=== PATIENT | male | born 1980 | race African-American/Black ===

== ENCOUNTER 2020-06-16 22:10 | Emergency (ER) | payer OTHER, SELFPAY ==
--- NOTE | ~2020-06-16 | CT_ITS ---
EXAMINATION: CT abdomen pelvis w con DATE: 06/16/2020 23:29 INDICATION: Left lower quadrant abdominal pain. TECHNIQUE: Computed tomography (CT) of the abdomen and pelvis was performed with 100 mL Omnipaque 350 intravenous contrast. Automated exposure control and iterative reconstruction technique were employe d. The dose-length product was 1664.48 mGy-cm. COMPARISON: CT abdomen and pelvis 01/11/2017 FINDINGS: The visualized portions of the lung bases are clear without pneumonia or pleural effusion. The heart size is normal. No pericardial effusion. The liver, gallbladder, spleen, pancreas, adrenal glands, and kidneys are normal. There are scattered diverticula in the colon. There is wall thickenin g of the sigmoid colon with surrounding fat stranding, consistent with diverticulitis. There are no d ilated loops of bowel. The appendix is normal. There are no pathologically enlarged lymph nodes. Ther e is no free intraperitoneal fluid. There is moderate lower lumbar spondylosis. IMPRESSION: 1. Acute sigmoid diverticulitis. No perforation or abscess. Reviewed, dictated and finalized at location A. ISHING EDITOR
[2020-06-16 22:12] VITALS: BP 140/82; PULSE 111; RESP 16; TEMP 36.4; O2SAT 100
--- NOTE | 2020-06-16 22:35 | ED.ABDPAIN ---
HPI - Abdominal Pain General Chief Complaint: Abdominal Pain Stated Complaint: lower abd pain Time Seen by Provider: 06/16/20 22:18 Source: patient Mode of arrival: ambulatory Limitations: no limitations History of Present Illness HPI narrative: Patient is a 40-year-old male complaining of left lower quadrant pain, 7 out of 10, sharp nonradiating started today. Patient denies any nausea vomiting diarrhea or fever. Patient denies any chest pain or shortness of breath. Related Data Allergies Allergy/AdvReac Type Severity Reaction Status Date / Time No Known Allergies Allergy Verified 06/16/20 22:18 Review of Systems Review of Systems: All systems reviewed & are unremarkable except as noted in HPI and below Constitutional: Constitutional: Denies body ache(s), Denies chills, Denies excessive sweating, Denies fatigue, Denies fever(s), Denies headache(s), Denies lethargy, Denies malaise, Denies weakness and Denies weight loss Eyes: Eyes: Denies blurry vision, Denies change in vision and Denies loss of vision ENT: Denies dizziness, Denies ear discharge, Denies headache(s), Denies lip swelling, Denies epistaxis, Denies nasal congestion, Denies neck pain, Denies throat swelling and Denies tongue swelling Cardiovascular: Cardiovascular: Denies chest pain, Denies chest pain at rest, Denies chest pain with activity, Denies diaphoresis, Denies rapid heart rate, Denies edema, Denies irregular heart rhythm, Denies lightheadedness, Denies palpitations, Denies dyspnea and Denies dyspnea on exertion Respiratory: Respiratory: Denies chest congestion, Denies cough, Denies hemoptysis, Denies dyspnea and Denies dyspnea on exertion Gastrointestinal: Gastrointestinal: Denies melena, Denies hematochezia, Denies diarrhea, Denies nausea, Denies vomiting and Denies hematemesis Musculoskeletal: Musculoskeletal: Denies abnormal gait, Denies deformity, Denies joint swelling, Denies limited range of motion, Denies neck pain and Denies numbness Neurologic: Denies Abnormal speech present, Denies abnormal gait, Denies confusion, Denies dizziness, Denies headache(s), Denies focal weakness, Denies loss of vision, Denies numbness, Denies Other visual disturbances, Denies Sensory deficit (Neuro) and Denies weakness Psychiatric: Psychiatric: Denies confusion, Denies depression, Denies auditory hallucinations, Denies homicidal ideation and Denies suicidal ideation Endocrine: Endocrine: Denies cold intolerance, Denies excessive sweating, Denies fatigue, Denies heat intolerance and Denies palpitations Hematologic/Lymphatic: Hematologic/Lymphatic: Denies easy bleeding and Denies easy bruising Allergic/Immunologic: Allergic/Immunologic: Denies lip swelling, Denies throat swelling and Denies tongue swelling PMFSH Past Medical History Medical History (Updated 06/17/20 @ 00:35 by Chapo Ojeda MD) Diverticulitis large intestine Obesity Social History Social History Gender identity (if verbalized by the patient): Male Exam Const: General: cooperative, healthy appearing, comfortable, no acute distress, well developed, alert and awake; No confusion Orientation/consciousness: oriented to person, oriented to place, oriented to time, patient oriented x3 and No confusion Limitations: no limitations HENMT: Head: normal to inspection, normocephalic and atraumatic Ears: hearing grossly normal bilaterally, TM normal on the right and TM normal on the left General nose exam: Normal external nose present, Normal nares present and No nasal discharge present Face and sinus: normal facial exam Mouth: Yes Normal oral and palatal mucosa present, Yes lip normal, Yes tongue normal and Yes oropharynx normal Throat: posterior oropharynx normal, tonsils normal and uvula midline Eyes: General: appearance normal, both eyes and all related structures Pupils: Equal, round and reactive pupils present EOM: EOMs intact bilaterall
[2020-06-16] MEDS: SODIUM CHLORIDE 0.9% IV 1,000 ML 999 ML IV CONT (22:40)
[2020-06-16 22:56] LABS: Basophils Percent Auto 0.2 % (0.2-1.2); Eosinophils Percent Auto 0.1 % (0-4.4); Hematocrit 41.6 % (42.0-52.0); Hemoglobin 13.8 g/dL (14.0-18.0); Immature Granulocyte Absolute 0.05 K/mm3 (0.00-0.031); Immature Granulocyte Percent A 0.4 % (0-0.5); Lymphocytes Absolute Auto 1.52 K/mm3 (0.9-3.2); Lymphocytes Percent Auto 11.7 % (18.3-44.2); Mean Corpuscular HGB Conc 33.2 g/dl (32-36); Mean Corpuscular Hemoglobin 27.1 pg (26-34); Mean Corpuscular Volume 81.6 fl (80-100); Mean Platelet Volume 9.9 fl (7.4-10.4); Monocytes Absolute Auto 0.9 K/mm3 (0.1-0.6); Neutrophils Absolute Auto 10.5 K/mm3 (1.3-6.7); Neutrophils Percent Auto 80.6 % (45.5-73.1); Platelet Count Result 314 k/mm3 (150-375); Red Cell Distribution Width 14.6 % (11.5-14.5)
[2020-06-16 23:07] LABS: Add Urine Microscopic? YES; Appearance Urine Clear (Clear); Bilirubin Urine Negative (Negative); Blood Urine Negative (Negative); Color Urine Yellow (Yellow); Glucose Urine UA Negative (Negative); Ketones Urine Negative (Negative); Leukocyte Esterase Ur Negative LEU/UL (Negative); Mucus Urine Rare /lpf; Nitrate Urine Negative (Negative); Protein Urine 1+ mg/dL (Negative); Specific Grav Ur 1.026 (1.001-1.035); Squamous Epithelial Cell Urine Rare /hpf (Few); Urobilinogen Urine Negative mg/dL (<2.0); WBC Urine 0-3 /hpf
[2020-06-16 23:14] LABS: Alanine Aminotransferase 27 U/L (4-50); Albumin Level 4.5 g/dL (3.5-5.1); Alkaline Phosphatase 67 U/L (38-126); Anion Gap 10 mmol/L (8-16); Aspartate Amino Transferase 24 U/L (17-59); Bilirubin,Total 0.6 mg/dL (0.2-1.3); Blood Urea Nitrogen 12 mg/dL (9-20); Calcium 9.6 mg/dL (8.4-10.2); Carbon Dioxide 27 mmol/L (22-30); Chloride 102 mmol/L (98-107); Estimated CRCL calculation 122 ml/min; Estimated Glomerular Filt Rate > 60; Glucose 120 mg/dL (75-110); Lipase 60 U/L (23-300); Potassium 3.8 mmol/L (3.4-5.0); Sodium 139 mmol/L (137-145)
[2020-06-17] MEDS: KETOROLAC 30 MG/ML VIAL (*BKC) IV PUSH (00:01)
[2020-06-17 00:36] VITALS: BP 145/75; PULSE 98; RESP 15; O2SAT 96
[2020-06-17] MEDS: metroNIDAZOLE 500 MG/ISO 100ML 500 MG/100 ML BAG 100 MG IVPB (00:53)
[2020-06-17] MEDS: HYDROcodone/acetaminophen (*CRX) 7.5-325 MG TABLET 1 TAB PO (01:51)
== END 2020-06-17 01:54 | disposition home or self-care (01) ==
PROVIDERS: Emergency Medicine; Emergency Provider Emergency Medicine; PCP Internal Medicine
DX: K57.32 Diverticulitis of large intestine without perforation or abscess without bleeding (principal); E66.9 Obesity, unspecified; Z68.36 Body mass index [BMI] 36.0-36.9, adult
CPT/HCPCS: 36415; 74177; 80053; 81001; 83690; 85025; 96361; 96365; 96367; 96375; 99284; A9270; J0696; J1885; J7030; Q9967

== ENCOUNTER 2020-08-09 20:45 | Emergency (ER) | payer OTHER, SELFPAY ==
--- NOTE | ~2020-08-09 | CT_ITS ---
EXAMINATION: CT abdomen pelvis w con INDICATION: Abdominal pain TECHNIQUE: Computed tomographic images of the abdomen and pelvis were obtained after the administrati on of 100 cc of Omnipaque 350 intravenous contrast. The dose-length product (DLP) was 1560.36 mGy-cm. Automated exposure control and iterative reconstruction technique were employed. COMPARISON: 06/16/2020 FINDINGS: Minimal dependent atelectasis is present in the lung bases. The heart size is normal. The l iver, spleen, pancreas, gallbladder, and adrenal glands are normal. The kidneys are unremarkable. No pathologically enlarged abdominal or pelvic lymph nodes are identified. There is no free intraperiton eal gas or evidence of bowel obstruction. There is wall thickening of the proximal sigmoid colon with edematous stranding of the adjacent perisigmoid fat. No perforation or abscess is identified. There are no dilated loops of bowel. The appendix is normal. There is moderate lower lumbar spondylosis. Th ere is a fat-containing umbilical hernia. IMPRESSION: 1. Acute, uncomplicated sigmoid diverticulitis. Reviewed, dictated and finalized at location A. ETING OPERATIONS CONSULTANT
[2020-08-09 20:46] VITALS: BP 135/82; PULSE 98; RESP 16; TEMP 36.6; O2SAT 100
--- NOTE | 2020-08-09 21:06 | PC.NURSE ---
patient brought back to ED room 8 with c/o abdomen pain. see initial notes. no change in patient's condition since triage completed. hx of diverticulitis last year per patient's report. denies known fever. denies N/V/D. alert. oriented. SL inserted. labs drawn. on BP and O2 monitors. call light in reach. aware that we do need a urine specimen.
[2020-08-09 21:07] LABS: Basophils Percent Auto 0.2 % (0.2-1.2); Eosinophils Percent Auto 0.3 % (0-4.4); Hematocrit 44.4 % (42.0-52.0); Hemoglobin 14.6 g/dL (14.0-18.0); Immature Granulocyte Absolute 0.03 K/mm3 (0.00-0.031); Immature Granulocyte Percent A 0.3 % (0-0.5); Lymphocytes Absolute Auto 1.54 K/mm3 (0.9-3.2); Lymphocytes Percent Auto 14.8 % (18.3-44.2); Mean Corpuscular HGB Conc 32.9 g/dl (32-36); Mean Corpuscular Hemoglobin 26.7 pg (26-34); Mean Corpuscular Volume 81.2 fl (80-100); Mean Platelet Volume 9.6 fl (7.4-10.4); Monocytes Absolute Auto 0.6 K/mm3 (0.1-0.6); Monocytes Percent Auto 5.8 % (2.6-8.5); Neutrophils Absolute Auto 8.2 K/mm3 (1.3-6.7); Neutrophils Percent Auto 78.6 % (45.5-73.1); Platelet Count Result 295 k/mm3 (150-375); Red Blood Count 5.47 M/mm3 (4.6-6.20); Red Cell Distribution Width 15.2 % (11.5-14.5); White Blood Count 10.4 K/mm3 (4.5-10.0)
[2020-08-09 21:18] LABS: Alanine Aminotransferase 27 U/L (4-50); Albumin Level 4.4 g/dL (3.5-5.1); Alkaline Phosphatase 67 U/L (38-126); Anion Gap 10 mmol/L (8-16); Aspartate Amino Transferase 25 U/L (17-59); Bilirubin,Total 0.6 mg/dL (0.2-1.3); Blood Urea Nitrogen 12 mg/dL (9-20); Calcium 9.6 mg/dL (8.4-10.2); Carbon Dioxide 28 mmol/L (22-30); Chloride 98 mmol/L (98-107); Estimated CRCL calculation 134 ml/min; Estimated Glomerular Filt Rate > 60; Glucose 113 mg/dL (75-110); Lipase 186 U/L (23-300); Potassium 4.3 mmol/L (3.4-5.0); Sodium 136 mmol/L (137-145)
[2020-08-09] MEDS: ONDANSETRON INJ 4 MG/2 ML VIAL IV PUSH (21:40)
[2020-08-09] MEDS: SODIUM CHLORIDE 0.9% IV 1,000 ML 999 ML IV CONT (21:40)
[2020-08-09] MEDS: MORPHINE SULFATE (*CRX) 4 MG/ML INJ IV PUSH (21:57)
--- NOTE | 2020-08-09 21:57 | PC.NURSE ---
patient back from CT scan. IVF started. medicated as ordered. provider in room. on BP and O2 monitors. call light in reach.
--- NOTE | 2020-08-09 22:16 | ED.GENADULT ---
HPI - General Adult General Chief complaint: Abdominal Pain Stated complaint: Abd pain Time Seen by Provider: 08/09/20 21:24 History of Present Illness HPI narrative: Patient is a 40-year-old gentleman who presents the emergency department with chief complaint of left lower quadrant abdominal pain. The patient reports that he has history of diverticulitis and states that today he started having discomfort in the left lower quadrant. Patient states this feels just like his previous episodes and states that his last one was a couple of months ago. Patient denies fever denies vomiting. 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 Related Data Allergies Allergy/AdvReac Type Severity Reaction Status Date / Time No Known Allergies Allergy Verified 06/16/20 22:18 Review of Systems Review of Systems: Narrative: A 10 system review of systems was completed on the patient and is negative except for what is stated in the HPI. Nursing and ancillary documentation was reviewed. [facility] Past Medical History Medical History (Updated 08/09/20 @ 22:19 by Dung Roland MD) Diverticulitis large intestine Obesity Social History Social History Gender identity (if verbalized by the patient): Male Exam Narrative: Exam Narrative: GENERAL: Well-appearing, well-nourished, and in no acute distress. HEAD: Normocephalic, atraumatic. EYES: PERRLA and EOMI. ENT: Nares clear, no rhinorrhea or epistaxis. Mucous membranes moist. NECK: Supple. CHEST: Clear to auscultation. No respiratory distress. HEART: Regular rate and rhythm. No murmur heard. Normal peripheral pulses. ABDOMEN: Soft, tender to palpation of the left lower quadrant, nondistended, normal active bowel sounds. EXTREMITIES: Normal range of motion. No edema. SKIN: Warm, dry, no rash. NEURO: No focal deficits. Alert and oriented x3. PSYCH: Normal mood and affect. Course Course Emergency Course: Laboratory studies not show any significant abnormalities. CT scan showed uncomplicated diverticulitis patient will be started on p.o. antibiotics and also given a short prescription for pain medication for home. Vital Signs Vital signs: Vital Signs Temperature 36.6 C 08/09/20 20:46 Pulse Rate 98 08/09/20 20:46 Respiratory Rate 16 08/09/20 20:46 Blood Pressure 135/82 08/09/20 20:46 Pulse Oximetry 100 08/09/20 20:46 Temperature 36.6 C 08/09/20 20:46 Pulse Rate 98 08/09/20 20:46 Respiratory Rate 16 08/09/20 20:46 Blood Pressure 135/82 08/09/20 20:46 Pulse Oximetry 100 08/09/20 20:46 Medical Decision Making Vital Signs Vital Signs: Vital Signs Temperature 36.6 C 08/09/20 20:46 Pulse Rate 98 08/09/20 20:46 Respiratory Rate 16 08/09/20 20:46 Blood Pressure 135/82 08/09/20 20:46 Pulse Oximetry 100 08/09/20 20:46 Temperature 36.6 C 08/09/20 20:46 Pulse Rate 98 08/09/20 20:46 Respiratory Rate 16 08/09/20 20:46 Blood Pressure 135/82 08/09/20 20:46 Pulse Oximetry 100 08/09/20 20:46 Lab Data Result diagrams: 08/09/20 21:00 08/09/20 21:00 Labs: Lab Results 08/09/20 08/09/20 Range/Units 21:00 21:00 WBC 10.4 H (4.5-10.0) K/mm3 RBC 5.47 (4.6-6.20) M/mm3 Hgb 14.6 (14.0-18.0) g/dL Hct 44.4 (42.0-52.0) % MCV 81.2 (80-100) fl MCH 26.7 (26-34) pg MCHC 32.9 (32-36) g/dl RDW 15.2 H (11.5-14.5) % Plt Count 295 (150-375) k/mm3 MPV 9.6 (7.4-10.4) fl Immature Gran % (Auto) 0.3 (0-0.5) % Neut % (Auto) 78.6 H (45.5-73.1) % Lymph % (Auto) 14.8 L (18.3-44.2) % [place]oup % (Auto) 5.8 (2.6-8.5) % Eos % (Auto) 0.3 (0-4.4) % Baso % (Auto) 0.2 (0.2-1.2) % Lymph # (Auto) 1.54 (0.9-3.2) K/mm3 Troup # (Auto) 0.6 (0.1-0.6) K/mm3 Eos # (Auto) 0.0 (0-0.3) K/mm3 Baso # (Auto) 0.0
[2020-08-09] MEDS: CIPROFLOXACIN 500 MG TAB PO (22:27)
[2020-08-09] MEDS: metroNIDAZOLE 250 MG TABLET 500 MG PO (22:27)
--- NOTE | 2020-08-09 23:09 | PC.NURSE ---
Er physician states he does not need a urine sample from patient
[2020-08-09 23:42] VITALS: BP 135/85; PULSE 102; RESP 17; O2SAT 95
== END 2020-08-09 23:44 | disposition home or self-care (01) ==
PROVIDERS: Emergency Medicine; Emergency Provider Emergency Medicine; PCP Internal Medicine
DX: K57.32 Diverticulitis of large intestine without perforation or abscess without bleeding (principal); E66.9 Obesity, unspecified; Z68.36 Body mass index [BMI] 36.0-36.9, adult
CPT/HCPCS: 36415; 74177; 80053; 83690; 85025; 96361; 96374; 96375; 99284; A9270; J2270; J2405; J7030; Q9967

== ENCOUNTER → 2021-01-13 02:16 | Outpatient (CLI) | payer OTHER, SELFPAY ==
[2021-01-13 18:15] LABS: SARS-CoV-2 RNA PCR Negative
== END ==
PROVIDERS: PCP Internal Medicine; Visit Provider Internal Medicine Gastroenterology
DX: Z01.812 Encounter for preprocedural laboratory examination (principal); Z20.822 Contact with and (suspected) exposure to COVID-19
CPT/HCPCS: C9803; U0003; U0005

== ENCOUNTER 2021-01-16 00:45 | Day surgery (SDC) | payer OTHER, SELFPAY ==
[2021-01-06 14:22] VITALS: BMI 38.9
[2021-01-16 07:47] VITALS: BP 161/90; PULSE 71; RESP 18; TEMP 36.4; O2SAT 99
--- NOTE | 2021-01-16 07:53 | WPDANESEPPF ---
Anes - Initial Pre Proc Eval Procedure: Operation Date: 01/16/21 08:45 Proposed Procedures p Colonoscopy - Francisco Javier Snell MD Date/Time: 01/16/21 07:53 Surgeon: Francisco Javier Snell MD Pre Op Diagnosis: hx of colon polyps, Diverticulitis Patient Data Age: 40 Gender: M Height: 1.85 m Weight: 136.7 kg Last Vital Signs Temp 36.4 C L 01/16/21 07:47 Pulse 71 01/16/21 07:47 Resp 18 01/16/21 07:47 BP 161/90 H 01/16/21 07:47 Pulse Ox 99 01/16/21 07:47 Allergies Allergy/AdvReac Type Severity Reaction Status Date / Time No Known Allergies Allergy Verified 01/16/21 07:45 Home Medications Medication Instructions Recorded Confirmed Type sod picosulf 10 mg-magnes 3.5 160 ml PO BID #160 ml 12/19/20 01/16/21 Rx gram-citric 12 gram/160 mL oral solution Patient hx anesthesia problems: none Family hx anesthesia problems: none [facility] Past Medical History Medical History Diverticulitis large intestine Obesity Social History Social History (Updated 12/12/20 @ 10:15 by Beverly Guerrero CMA) Smoking status: Never smoker Alcohol intake: current Drinks per week: 2 Substance use: never Living arrangements: with family Gender identity (if verbalized by the patient): Male Spiritual care concerns: No Anes - Eval Final PreProcedure Day of Procedure 01/16/21 07:53 Patient weight: obese Heart: regular rate and rhythm Lungs: clear to auscultation and normal air movement Airway: Mallampati scale class II Neurological: alert and oriented Last oral intake: >/= 8 hours ASA classification: III Emergent: no Anesthetic plan: proceed Anesthesia type and monitoring: general GIVS Informed Consent: The patient's anesthetic plan and its attendant risks and benefits were discussed with the patient/family/POA. Questions were solicited and answers provided to the satisfaction of the patient/family/POA.
[2021-01-16] MEDS: LACTATED RINGERS 1,000 ML 150 ML IV CONT (07:55)
--- NOTE | 2021-01-16 08:26 | WPDGICN ---
Assessment and Plan Assessment and plan (1) Diverticulitis large intestine: Qualifiers: Diverticulitis bleeding: without bleeding Diverticulitis complication: without perforation or abscess Qualified Code(s): K57.32 - Diverticulitis of large intestine without perforation or abscess without bleeding Code(s): K57.32 - Diverticulitis of large intestine without perforation or abscess without bleeding Status: Acute Assessment and Plan: Patient with recurrent episodes of diverticulitis. Currently asymptomatic. He has had 4-6 episodes over the last year. Plan is for high-fiber diet colonoscopy will be performed to suggest surgical evaluation for possible sigmoid resection. (2) History of colon polyps: Code(s): Z86.010 - Personal history of colonic polyps Status: Acute Assessment and Plan: Patient has had colon polyps. Last colonoscopy in 2017 revealed several colon polyps. Plan is for surveillance colonoscopy at this time this will be reviewed ultimately follow-up every 5 years is anticipated. GI Consult Note Consult date/time: 01/16/21 08:26 HPI: Dm Santiago is a 40 year old male Seen in evaluation at the request of Dr. Jensen. patient presents for colonoscopy. Patient has a history of recurrent diverticulitis. He has had at least 4-6 episodes of diverticulitis during the last year. He states it has improved somewhat with antibiotics but has promptly recurred. Last episode was 2 months ago. Patient denies any bleeding. He denies any weight loss. Last colonoscopy in 2017 revealed colon polyps. Patient's family history is noncontributory. Patient reports no specific precipitating factors. Review of Systems Review of Systems: All systems reviewed & are unremarkable except as noted in HPI and below PMFSH Past Medical History Medical History (Updated 01/16/21 @ 08:28 by Francisco Javier Snell MD) Diverticulitis large intestine Obesity Social History Social History (Updated 12/12/20 @ 10:15 by Beverly Guerrero CMA) Smoking status: Never smoker Alcohol intake: current Drinks per week: 2 Substance use: never Living arrangements: with family Gender identity (if verbalized by the patient): Male Spiritual care concerns: No Meds Home Medications and Allergies Home Medications Medication Instructions Recorded Confirmed Type sod picosulf 10 mg-magnes 3.5 160 ml PO BID #160 ml 12/19/20 01/16/21 Rx gram-citric 12 gram/160 mL oral solution Allergies Allergy/AdvReac Type Severity Reaction Status Date / Time No Known Allergies Allergy Verified 01/16/21 07:45 Vital Signs Vital Signs - 24 hr 01/16/21 07:47 Temperature 97.5 F L Pulse Rate 71 Respiratory Rate 18 Blood Pressure 161/90 H Pulse Oximetry 99 Exam Narrative: Exam Narrative: Physical exam reveals patient be alert. Vital signs stable. HEENT exam is unremarkable. Patient is anicteric. Lungs are clear to auscultation and percussion. Heart is without murmur or extra sounds. Abdominal exam bowel sounds are present soft nontender with no organomegaly. Digital external rectal exam is normal.
[2021-01-16 08:54] VITALS: BP 122/78; PULSE 80; RESP 22; O2SAT 98
[2021-01-16 09:04] VITALS: BP 138/96; PULSE 76; RESP 22; O2SAT 98
[2021-01-16 09:14] VITALS: BP 140/98; PULSE 64; RESP 20; O2SAT 98
== END 2021-01-16 09:30 | disposition home or self-care (01) ==
PROVIDERS: PCP Internal Medicine; Visit Provider Internal Medicine Gastroenterology
PROC: 0DJD8ZZ Inspection of Lower Intestinal Tract, Via Natural or Artificial Opening Endoscopic (ICD-10-PCS; CPT 45378; principal; 2021-01-16 08:45)
DX: Z12.11 Encounter for screening for malignant neoplasm of colon (principal); Z86.010 Personal history of colon polyps; E66.9 Obesity, unspecified; Z68.39 Body mass index [BMI] 39.0-39.9, adult; K57.32 Diverticulitis of large intestine without perforation or abscess without bleeding
CPT/HCPCS: 45378; C9803; J2704; J7120; U0003; U0005

== ENCOUNTER 2021-03-03 19:47 | Emergency (ER) | payer OTHER, SELFPAY ==
--- NOTE | ~2021-03-03 | CT_ITS ---
EXAMINATION: CTA brain carotid EXAM DATE: 03/04/2021 02:59 INDICATION: Dizziness, unsteady TECHNIQUE: Noncontrast head CT. Spiral CTA of the carotid arteries was performed with intravenous i njection 100 cc of Omnipaque 350. Axial, coronal, sagittal reformatted images reviewed. Additional r eformatted images created on dedicated 3-D workstation. NASCET comparable standard used to assess th e degree of arterial stenosis. Spiral CT angiogram cerebral arteries performed with the same intrave nous injection of contrast. Source images of the brain CTA transferred to dedicated workstation for 3 -D rotational image creation. Coronal, sagittal maximum intensity pixel images also reviewed. The d ose-length product (DLP) for this examination was 1800.43 mGy-cm. The exposure was tailored accordi ng to patient size, and iterative reconstruction (ASIR) was used as additional dose reduction techniq ue. There is no prior study for comparison. FINDINGS: No focal carotid plaque or stenosis bilaterally (0% stenosis). There is no carotid or vert ebral basilar arterial dissection or fibromuscular dysplasia. There are no cerebral artery aneurysms. There is symmetric cerebral artery arborization. The sagittal, transverse and sigmoid sinuses enhanc e normally, no venous sinus thrombosis. Internal cerebral veins also enhance normally. There is no acute intraparenchymal hemorrhage. No evidence of intraparenchymal brain mass lesion. N o evidence of acute infarction. There is no mass effect or midline shift. There is no obstructive hyd rocephalus suspected. There are no extra-axial collections. Incidental Findings: Mild cervical spondylosis. IMPRESSION: Normal CTA brain carotid examination. Reviewed, dictated and finalized at location G.
--- NOTE | 2021-03-03 19:50 | ECG_ITS ---
Measurements Intervals [place] Rate: 84 P: 57 SC: 158 QRS: 30 QRSD: 85 T: 49 QT: 332 QTc: 393 Interpretive Statements SINUS RHYTHM NORMAL ECG Electronically Signed On 03-03-2021 20:54:01 CDT by Bruno Mancera D.O.
[2021-03-03 19:51] VITALS: BP 128/82; PULSE 89; RESP 18; TEMP 36.4; O2SAT 99
[2021-03-03 20:07] LABS: Basophils Percent Auto 0.2 % (0.2-1.2); Eosinophils Absolute Auto 0.1 K/mm3 (0-0.3); Hematocrit 43.7 % (42.0-52.0); Hemoglobin 14.1 g/dL (14.0-18.0); Immature Granulocyte Absolute 0.02 K/mm3 (0.00-0.031); Immature Granulocyte Percent A 0.2 % (0-0.5); Lymphocytes Percent Auto 24.8 % (18.3-44.2); Mean Corpuscular HGB Conc 32.3 g/dl (32-36); Mean Corpuscular Hemoglobin 26.3 pg (26-34); Mean Corpuscular Volume 81.5 fl (80-100); Mean Platelet Volume 9.7 fl (7.4-10.4); Monocytes Absolute Auto 0.6 K/mm3 (0.1-0.6); Monocytes Percent Auto 6.5 % (2.6-8.5); Neutrophils Percent Auto 67.3 % (45.5-73.1); Platelet Count Result 325 k/mm3 (150-375); Red Blood Count 5.36 M/mm3 (4.6-6.20); Red Cell Distribution Width 15.6 % (11.5-14.5); White Blood Count 8.9 K/mm3 (4.5-10.0)
[2021-03-03 20:20] LABS: Anion Gap 11 mmol/L (8-16); Blood Urea Nitrogen 14 mg/dL (9-20); Carbon Dioxide 24 mmol/L (22-30); Chloride 104 mmol/L (98-107); Estimated CRCL calculation 122 ml/min; Estimated Glomerular Filt Rate > 60; Glucose 120 mg/dL (65-110); Potassium 3.7 mmol/L (3.4-5.0); Sodium 139 mmol/L (137-145)
[2021-03-04] VITALS (17 sets, daily range): BP systolic 120–143; BP diastolic 92–116; PULSE 60–92; RESP 9–20; TEMP 36.7; O2SAT 96–99
--- NOTE | 2021-03-04 03:07 | ED.DIZZY ---
HPI - Dizziness General Chief Complaint: Dizziness Stated Complaint: dizziness x 3 days Time Seen by Provider: 03/04/21 01:45 Source: patient and RN notes reviewed Mode of arrival: ambulatory Limitations: no limitations History of Present Illness HPI Narrative: This is a 40 year old male who presents for evaluation of intermittent dizziness. He states he developed dizziness on Saturday. He states his dizziness is intermittent. He notices his dizziness when he stands up. He reports he feels off balance when he stands. He states day his dizziness is occurring more frequently and he felt it when he sat down. He denies associated nausea, vomiting, headache, blurred vision, double vision . He denies spinning sensation. Related Data Allergies Allergy/AdvReac Type Severity Reaction Status Date / Time No Known Allergies Allergy Verified 03/03/21 19:53 Review of Systems Review of Systems: All systems reviewed & are unremarkable except as noted in HPI and below Constitutional: Constitutional: Denies chills and Denies fever(s) Eyes: Eyes: Denies change in vision and Denies photophobia ENT: Denies vertigo, Reports dizziness and Denies nasal congestion Cardiovascular: Cardiovascular: Denies chest pain Respiratory: Respiratory: Denies dyspnea Gastrointestinal: Gastrointestinal: Denies abdominal pain, Denies diarrhea, Denies nausea and Denies vomiting Neurologic: Reports dizziness, Denies headache(s), Denies focal weakness, Denies numbness and Denies weakness PMFSH Past Medical History Medical History Diverticulitis large intestine Obesity Surgical History Surgical History History of colonoscopy Family History Family History Father Heart disease Mother Hypertension Social History Social History (Updated 01/30/21 @ 13:34 by Nickie Medina CMA) Smoking status: Never smoker Alcohol intake: current Drinks per week: 2 Substance use: never Additional occupation/education comments: [employer] Gender identity (if verbalized by the patient): Male Spiritual care concerns: No Exam Const: General: no acute distress and alert Orientation/consciousness: patient oriented x3 Eyes: Conjunctivae: conjunctivae normal Pupils: Equal, round and reactive pupils present EOM: EOMs intact bilaterally Resp: Effort & Inspection: normal respiratory effort and no retractions Auscultation: clear to auscultation bilaterally Cardio: Rate: regular rate Rhythm: regular rhythm Heart sounds: no murmurs GI: GI Palp: Yes Soft to palpation, No Tenderness to palpation present (GI) and No Guarding due to palpation present (GI) Auscultation: normal bowel sounds Neuro: General: patient oriented x3, moves all extremities, no meningeal signs, no focal motor deficits and CN's II-XI intact bilaterally Cranial nerves: Yes Nystagmus not present Speech: normal speech Gait exam (Neuro): Normal gait present Psych: Mental Status: mental status grossly normal Affect: normal affect Course Reevaluation(s) Reevaluation #1: PAtient was able to stand up and walk around without dizziness. he has steady gait. Date: 03/04/21 Time: 04:10 Vital Signs Vital signs: Vital Signs Temperature 97.5 F L 03/03/21 19:51 Pulse Rate 89 03/03/21 19:51 Respiratory Rate 18 03/03/21 19:51 Blood Pressure 128/82 03/03/21 19:51 Pulse Oximetry 99 03/03/21 19:51 Temperature 98.1 F 03/04/21 05:08 Pulse Rate 80 03/04/21 05:08 Respiratory Rate 18 03/04/21 05:08 Blood Pressure 139/100 H 03/04/21 05:08 Pulse Oximetry 99 03/04/21 05:08 MDM - Dizziness Lab Data Attestation: I reviewed the patient's lab results. Result diagrams: 03/03/21 20:00 03/03/21 20:00 Labs: Lab Results 03/03/21 03/03/21 Range/U
== END 2021-03-04 05:11 | disposition home or self-care (01) ==
PROVIDERS: Emergency Medicine; Emergency Provider General Practice; PCP Internal Medicine
DX: R42 Dizziness and giddiness (principal); E66.9 Obesity, unspecified; Z68.38 Body mass index [BMI] 38.0-38.9, adult
CPT/HCPCS: 36415; 70496; 70498; 80048; 85025; 93005; 99284; Q9967

== ENCOUNTER 2021-03-07 03:45 | Emergency (ER) | payer OTHER, SELFPAY ==
--- NOTE | ~2021-03-07 | CT_ITS ---
EXAMINATION: CT abdomen pelvis w con DATE: 03/07/2021 05:10 INDICATION: Diverticulitis. Abdomen pain. TECHNIQUE: Computed tomography (CT) of the abdomen and pelvis was performed with 100 cc Omnipaque 350 intravenous contrast. The dose-length product was 1462.40 mGy-cm. Automated exposure control and ite rative reconstruction technique were employed. COMPARISON: CT dated 08/09/2020. FINDINGS: Lung bases are unremarkable. Heart size normal. No significant pleural or pericardial effus ion. No significant vascular abnormality. No lymphadenopathy. Fatty infiltration of the liver. Gallbladder is present. The spleen, pancreas, adrenal glands and kid neys are unremarkable. Normal appendix. Nonobstructive bowel gas pattern. There is abnormal thickenin g of the distal descending and proximal sigmoid colon with moderate surrounding phlegmonous change, c onsistent with diverticulitis. Cannot exclude underlying mass. No evidence for abscess. No acute osse ous abnormality. IMPRESSION: 1. Acute diverticulitis of the distal descending and proximal sigmoid colon with moderate phlegmonous change. Cannot exclude underlying mass. Recommend follow-up GI consultation with evaluation when the patient's condition permits. Reviewed, dictated and finalized at location A. IMPRESSION: 1. Acute diverticulitis of the distal descending and proximal sigmoid colon wit h moderate phlegmonous change. Cannot exclude underlying mass. Recommend follow -up GI consultation with evaluation when the patient's condition permits.
[2021-03-07 03:53] VITALS: BP 128/92; PULSE 101; RESP 20; TEMP 36.8; O2SAT 99
--- NOTE | 2021-03-07 03:53 | ED.ABDPAIN ---
HPI - Abdominal Pain General Chief Complaint: Abdominal Pain Stated Complaint: Diverticulitis Time Seen by Provider: 03/07/21 03:53 Source: patient Mode of arrival: ambulatory Limitations: no limitations History of Present Illness HPI narrative: Patient is a 40-year-old male with a history of diverticulitis who presents for evaluation of recurrent left lower quadrant abdominal pain. Patient reports he has had worsening pain over the past 3 nights which is sore and sharp in nature, worsened with movement. He feels it mostly in the left side, denies any left-sided back pain. No right-sided abdominal pain. He denies fever, chills, nausea or vomiting. He does report decreased oral intake secondary to the pain. He denies blood present in his stool, dark or tarry stool, or mucus present in the stool. No diarrhea or constipation. He denies any urinary symptoms. Patient follows with Dr. Landa, is scheduled to have surgery within the next 2 weeks. Related Data Allergies Allergy/AdvReac Type Severity Reaction Status Date / Time No Known Allergies Allergy Verified 03/07/21 05:03 Review of Systems Review of Systems: Narrative: CONSTITUTIONAL: Denies fever, chills, or sweats. EYES: Denies visual changes, redness, or discharge. ENT: Denies rhinorrhea, congestion, sore throat, or otalgia. CARDIOVASCULAR: Denies chest pain, palpitations, or edema. RESPIRATORY: Denies cough or dyspnea. GASTROINTESTINAL: Reports abdominal pain and decreased oral intake, denies vomiting or diarrhea GENITOURINARY: Denies dysuria or hematuria. SKIN: Denies rash or itching. MUSCULOSKELETAL: Denies back pain, joint pain, or myalgia. NEUROLOGIC: Denies headache, numbness, or weakness. [facility] Past Medical History Medical History Diverticulitis large intestine Obesity Surgical History Surgical History History of colonoscopy Family History Family History Father Heart disease Mother Hypertension Social History Social History Smoking status: Never smoker Alcohol intake: current Drinks per week: 2 Substance use: never Additional occupation/education comments: [employer] Gender identity (if verbalized by the patient): Male Spiritual care concerns: No Exam Narrative: Exam Narrative: GENERAL: Awake, alert, conversant HEAD: Normocephalic, atraumatic. EYES: PERRLA and EOMI. ENT: Nares clear, no rhinorrhea or epistaxis. Mucous membranes moist. NECK: Supple. CHEST: No respiratory distress, breathing even and non labored HEART: Regular rate, sinus rhythm ABDOMEN:Non distended, tender in the left lower quadrant without rebound, no rigidity or guarding EXTREMITIES: Normal range of motion. No edema. SKIN: Warm, dry, no rash. NEURO:No focal deficits. Alert and oriented x3 Course Vital Signs Vital signs: Vital Signs Temperature 36.8 C 03/07/21 03:53 Pulse Rate 101 H 03/07/21 03:53 Respiratory Rate 20 03/07/21 03:53 Blood Pressure 128/92 H 03/07/21 03:53 Pulse Oximetry 99 03/07/21 03:53 Temperature 36.8 C 03/07/21 03:53 Pulse Rate 101 H 03/07/21 03:53 Respiratory Rate 20 03/07/21 03:53 Blood Pressure 128/92 H 03/07/21 03:53 Pulse Oximetry 99 03/07/21 03:53 MDM - Abdominal Pain MDM Narrative Medical decision making narrative: Patient presenting for evaluation of left-sided abdominal pain in the setting of known diverticulitis. At the time of assessment, ABCs are intact and vital signs are stable. Notable for mild leukocytosis. Patient is afebrile, no hypotension. No sign of severe sepsis or septic shock. There is no sign of mirtha perforation on CT imaging but there is a severe amount of inflammation. No definite abscess. Spoke with on-call surgeon Dr. Reyes regarding the patient, altagracia
[2021-03-07 04:39] LABS: Basophils Percent Auto 0.1 % (0.2-1.2); Eosinophils Percent Auto 0.3 % (0-4.4); Immature Granulocyte Absolute 0.04 K/mm3 (0.00-0.031); Immature Granulocyte Percent A 0.4 % (0-0.5); Lymphocytes Absolute Auto 1.37 K/mm3 (0.9-3.2); Lymphocytes Percent Auto 12.5 % (18.3-44.2); Mean Corpuscular HGB Conc 33.3 g/dl (32-36); Mean Corpuscular Hemoglobin 26.5 pg (26-34); Mean Corpuscular Volume 79.4 fl (80-100); Mean Platelet Volume 9.7 fl (7.4-10.4); Monocytes Absolute Auto 0.9 K/mm3 (0.1-0.6); Monocytes Percent Auto 8.1 % (2.6-8.5); Neutrophils Absolute Auto 8.6 K/mm3 (1.3-6.7); Neutrophils Percent Auto 78.6 % (45.5-73.1); Platelet Count Result 322 k/mm3 (150-375); Red Blood Count 5.29 M/mm3 (4.6-6.20); Red Cell Distribution Width 15.2 % (11.5-14.5); White Blood Count 10.9 K/mm3 (4.5-10.0)
[2021-03-07] MEDS: SODIUM CHLORIDE 0.9% IV 1,000 ML 999 ML IV CONT (04:41)
[2021-03-07] MEDS: MORPHINE SULFATE (*CRX) 4 MG/ML INJ IV PUSH (04:43)
[2021-03-07] MEDS: ONDANSETRON INJ 4 MG/2 ML VIAL IV PUSH (04:45)
[2021-03-07 04:51] LABS: Alanine Aminotransferase 28 U/L (4-50); Albumin Level 4.5 g/dL (3.5-5.1); Alkaline Phosphatase 75 U/L (38-126); Anion Gap 12 mmol/L (8-16); Aspartate Amino Transferase 28 U/L (17-59); Bilirubin,Total 0.5 mg/dL (0.2-1.3); Blood Urea Nitrogen 12 mg/dL (9-20); Calcium 9.8 mg/dL (8.4-10.2); Carbon Dioxide 25 mmol/L (22-30); Chloride 100 mmol/L (98-107); Estimated CRCL calculation 122 ml/min; Estimated Glomerular Filt Rate > 60; Glucose 117 mg/dL (65-110); Lipase 260 U/L (23-300); Potassium 3.9 mmol/L (3.4-5.0); Sodium 137 mmol/L (137-145)
[2021-03-07 07:15] VITALS: BP 131/81; PULSE 82; RESP 18; O2SAT 97
== END 2021-03-07 07:16 | disposition home or self-care (01) ==
PROVIDERS: Emergency Provider Emergency Medicine; PCP Internal Medicine
DX: K57.32 Diverticulitis of large intestine without perforation or abscess without bleeding (principal); E66.9 Obesity, unspecified; Z68.39 Body mass index [BMI] 39.0-39.9, adult
CPT/HCPCS: 36415; 74177; 80053; 83690; 85025; 96361; 96374; 96375; 99284; J2270; J2405; J7030; Q9967

== ENCOUNTER 2021-03-07 13:36 | Outpatient (CLI) | payer OTHER, SELFPAY ==
--- NOTE | 2021-03-07 10:00 | ECG_ITS ---
Measurements Intervals Harvey Rate: 81 P: 57 ME: 151 QRS: 33 QRSD: 90 T: 32 QT: 335 QTc: 390 Interpretive Statements SINUS RHYTHM POSSIBLE LEFT ATRIAL ENLARGEMENT DELAYED PRECORDIAL R/S TRANSITION BORDERLINE ECG Electronically Signed On 03-07-2021 11:05:47 CDT by Bruno Mancera D.O.
[2021-03-07 11:13] LABS: Hematocrit 42.3 % (42.0-52.0); Hemoglobin 13.6 g/dL (14.0-18.0)
== END 2021-03-07 13:37 | disposition home or self-care (01) ==
LOC: ANHSURGERY 04-07 13:36
PROVIDERS: Anesthesiology; PCP Internal Medicine; Visit Provider Surgery
DX: K57.92 Diverticulitis of intestine, part unspecified, without perforation or abscess without bleeding (principal); Z01.818 Encounter for other preprocedural examination; R94.31 Abnormal electrocardiogram [ECG] [EKG]
CPT/HCPCS: 36415; 85014; 85018; 93005

== ENCOUNTER → 2021-03-21 01:53 | Outpatient (CLI) | payer OTHER, SELFPAY ==
[2021-03-21 17:39] LABS: SARS-CoV-2 RNA PCR Negative
== END ==
PROVIDERS: PCP Internal Medicine; Visit Provider Surgery
DX: Z01.812 Encounter for preprocedural laboratory examination (principal); Z20.822 Contact with and (suspected) exposure to COVID-19
CPT/HCPCS: C9803; U0003; U0005

== ENCOUNTER 2021-03-23 17:42 | Inpatient (IN) | payer OTHER, SELFPAY ==
[2021-03-07 10:20] VITALS: BP 146/67; PULSE 94; RESP 18; TEMP 36.8; O2SAT 97; BMI 39.2
[2021-03-23] VITALS (13 sets, daily range): BP systolic 123–156; BP diastolic 82–93; PULSE 65–99; RESP 14–28; TEMP 36–36.5; O2SAT 90–100
--- NOTE | 2021-03-23 10:00 | WPDHPUPDATE1 ---
History and Physical Update Update Date/Time: 03/23/21 10:00 History and Physical has been reviewed, including an updated exam of the patient. There are NO changes in the patient's condition. Risks, benefits, and alternatives have been discussed and questions answered. Patient agrees to proceed with procedure.
--- NOTE | 2021-03-23 10:00 | PM.IMHP ---
H&P: HPI History of Present Illness Date/Time: 03/23/21 10:00 Chief Complaint: Diverticulitis Narrative: Patient is a 40-year-old man who has had multiple episodes of diverticulitis. He has had colonoscopy as well showing diverticular disease but no evidence of malignancy. His more recent episodes have been difficult to treat. He was seen in the office at the request of his radiology technician, Dr. Francisco Javier Snell, and has been recommended to proceed with sigmoidectomy. Patient had another episode of acute diverticulitis on March 07, 16 days ago. He came to the emergency room and CT scan confirmed the diagnosis. He was treated with analgesics and oral antibiotics. The diverticulitis resolved and he has been pain-free for several days. After thorough discussion, he has been prepared and is taken now to surgery for hand access laparoscopic sigmoidectomy. Review of Systems Review of Systems: All systems reviewed & are unremarkable except as noted in HPI and below Constitutional: Constitutional: Denies headache(s) Cardiovascular: Cardiovascular: Denies chest pain and Denies dyspnea Respiratory: Respiratory: Denies cough and Denies dyspnea Gastrointestinal: Gastrointestinal: Reports as per HPI Neurologic: Denies confusion and Denies headache(s) PMFSH Past Medical History Medical History Diverticulitis large intestine Obesity Surgical History Surgical History History of colonoscopy Family History Family History Father Heart disease Mother Hypertension Social History Social History Smoking status: Never smoker Second hand tobacco smoke exposure: No Alcohol intake: current Drinks per week: 2 Substance use: never Living arrangements: with family Additional living arrangements comments: Additional occupation/education comments: [employer] Gender identity (if verbalized by the patient): Male Spiritual care concerns: No Meds Home Medications and Allergies Home Medications Medication Instructions Recorded Confirmed Type No Home Medications 03/23/21 03/23/21 History Allergies Allergy/AdvReac Type Severity Reaction Status Date / Time No Known Allergies Allergy Verified 03/09/21 13:27 Exam Const: General: cooperative, comfortable, no acute distress, alert and awake; No confusion Orientation/consciousness: No confusion HENMT: Head: normocephalic, atraumatic, no contusions and no scalp lesions Ears: external ears normal General nose exam: Normal external nose present Face and sinus: face symmetric and dry mucous membranes Mouth: Yes Normal oral and palatal mucosa present and Yes tongue normal Throat: posterior oropharynx normal Eyes: Conjunctivae: conjunctivae normal Sclera: sclerae normal Pupils: Equal, round and reactive pupils present EOM: EOMs intact bilaterally Neck: Neck: normal visual inspection, no lymphadenopathy, trachea midline, supple, nontender and no JVD Thyroid: abnormal thyroid Resp: Effort & Inspection: normal respiratory effort Auscultation: clear to auscultation bilaterally Cardio: Rate: regular rate Rhythm: regular rhythm GI: Inspection: normal to inspection and obesity GI Palp: Yes Soft to palpation, No Tenderness to palpation present (GI), No Hepatomegaly present and No Splenomegaly present Auscultation: normal bowel sounds : Penis: Yes normal penis Scrotum: scrotum normal Testes: Testes normal, no masses and no testicular tenderness Skin: General skin exam: normal color, turgor normal and no erythema Lesions: no lesions Rashes: no rashes Trauma: no lacerations or abrasions Neuro: General: No confusion Cranial nerves: Yes Equal, round and reactive pupils present Motor exam (neuro): Motor abnormalities not
[2021-03-23] MEDS: ACETAMINOPHEN 500 MG TABLET 1000 MG PO (10:34)
[2021-03-23] MEDS: LACTATED RINGERS 1,000 ML 30 ML IV CONT ×2 (10:45→16:20)
[2021-03-23] MEDS: KETOROLAC 15 MG/ML VIAL (*BKC) IV PUSH (10:59)
--- NOTE | 2021-03-23 11:19 | WPDANESEPPF ---
Anes - Initial Pre Proc Eval Procedure: Operation Date: 03/23/21 12:30 Proposed Procedures p Hand Assisted Laparoscopic Sigmoidectomy - Vinayak Landa MD Date/Time: 03/23/21 11:19 Surgeon: Vinayak Landa MD Pre Op Diagnosis: diverticulitis Patient Data Age: 40 Gender: M Height: 1.85 m Weight: 134.7 kg Last Vital Signs Temp 36.8 C 03/07/21 10:20 Pulse 94 03/07/21 10:20 Resp 18 03/07/21 10:20 BP 146/67 H 03/07/21 10:20 Pulse Ox 97 03/07/21 10:20 Allergies Allergy/AdvReac Type Severity Reaction Status Date / Time No Known Allergies Allergy Verified 03/09/21 13:27 Home Medications Medication Instructions Recorded Confirmed Type No Home Medications 03/23/21 03/23/21 History Patient hx anesthesia problems: none Family hx anesthesia problems: none PMFSH Past Medical History Medical History Diverticulitis large intestine Obesity Surgical History Surgical History History of colonoscopy Family History Family History Father Heart disease Mother Hypertension Social History Social History Smoking status: Never smoker Second hand tobacco smoke exposure: No Alcohol intake: current Drinks per week: 2 Substance use: never Living arrangements: with family Additional living arrangements comments: Additional occupation/education comments: [employer] Gender identity (if verbalized by the patient): Male Spiritual care concerns: No Anes - Eval Final PreProcedure Day of Procedure 03/23/21 11:19 Patient weight: morbidly obese Heart: regular rate and rhythm Lungs: clear to auscultation Airway: Mallampati scale class II Neurological: alert and oriented Last oral intake: >/= 8 hours ASA classification: III Emergent: no Anesthetic plan: proceed Anesthesia type and monitoring: general ETT and standard monitoring Informed Consent: The patient's anesthetic plan and its attendant risks and benefits were discussed with the patient/family/POA. Questions were solicited and answers provided to the satisfaction of the patient/family/POA.
[2021-03-23] MEDS: ALVIMOPAN 12 MG CAPSULE PO (11:59)
[2021-03-23] MEDS: ceFAZolin 3 GM/D5W 100 ML 100 ML IVPB (12:04)
[2021-03-23] MEDS: metroNIDAZOLE 500 MG/ISO 100ML 500 MG/100 ML BAG 100 MG IVPB (12:30)
[2021-03-23] MEDS: BUPIVACAINE/EPINEPHRINE 0.5% 10 ML VIAL 50 ML INFILTRATE (13:09)
[2021-03-23] MEDS: ceFAZolin SODIUM 1 GM VIAL 3 GM IV PUSH (16:00)
--- NOTE | 2021-03-23 16:55 | SUR.PHASEI ---
Simple mask removed at 1654.
--- NOTE | 2021-03-23 17:00 | W.PM.PROC2 ---
Procedure Note - Detailed Date of Procedure 03/23/21 Pre-op Diagnosis diverticulitis Post-op Diagnosis other (Descending colon diverticulitis) Procedure Performed Hand access laparoscopic left colectomy, laparoscopic mobilization of splenic flexure, hand-sewn anastomosis Surgeon Vinayak Landa MD Table[employer] Administrator Asuncion BARRON Anesthesia general and local (0.5% Marcaine with epinephrine) Indications Patient is had multiple episodes of diverticulitis particularly within the last [address] scans note that the diverticulitis is in the distal descending colon which is somewhat unusual as typically the diverticulitis is in the sigmoid. Patient was just in the emergency room 2 weeks ago with another episode of diverticulitis. Again this appeared to be in the distal descending colon. He is taken to surgery now for hand access laparoscopic colectomy for recurrent episodes of diverticulitis. Findings Well there were diverticuli in the sigmoid there was no evidence of inflammation thickening or previous infection. In the distal descending colon, however, there was evidence of both acute and chronic inflammation with thickening of the wall and induration of the mesentery and epiploica. This appeared to be the site of the recurrent diverticulitis rather than the sigmoid. Splenic flexure mobilization was necessary to achieve enough length of the descending colon to resect and provide end-to-end hand-sewn anastomosis to the upper sigmoid colon. Description of Procedure Patient was taken to surgery and induced into general anesthesia. He was placed in Rashi stirrups in lithotomy. Rectal irrigation rectal tube were placed. Chiang catheter was placed. The abdomen is prepped and draped. The hand access port was marked on the skin in the midline below the umbilicus. Local was infiltrated in the area of the anticipated incision. Incision was then made dissection was carried down through the subcutaneous to the anterior abdominal wall fascia. Additional local was infiltrated in the fascia. Fascia was then opened in the midline and dissection was carried down between the 2 rectus muscles. The peritoneum was exposed and opened. We extended this opening the length of the wound. I then placed the Xu and GelPort. With the hand in the abdomen, the 10 11 left mid abdominal trocar was placed. Under direct visualization, the 10 11 midline trocar was placed. Finally a 12 mm right mid abdominal trocar was placed. The descending colon was exposed. It was adherent to the left abdominal sidewall. The LigaSure was used for virtually all dissection. The adhesions were taken down with the LigaSure and gradually the distal descending and upper sigmoid was mobilized. The bulk of the sigmoid colon was not adherent and in fact looked completely normal. As noted above, there were a lot of inflammatory changes in the distal descending colon. This was mobilized on its mesentery. I then continued to free the descending colon from its lateral peritoneal attachments up towards the splenic flexure. I went back to the pelvis and dissected out the ureter. It was encircled with red vessel loop which was clipped to itself. This allowed returned to the ureter easily throughout the surgery to ensure its safety. I then checked and recheck to the sigmoid colon and the distal descending colon. I decided that we would resect the area where there was obviously diverticulitis and leave the normal-appearing sigmoid colon in place. This would require splenic flexure mobilization. We continued to mobilize the left colon up towards the splenic flexure. Adhesions of the omentum to the sidewall were taken down towards the splenic flexure. I then elevated the omentum off the mid transverse colon. I freed the distal transverse colon from the omentum and then followed the transverse colon to the splenic flexure. From there I was able to remove the omentum from the splenic flexure using the LigaSur
[2021-03-23] MEDS: HYDROcodone/acetaminophen (*CRX) 10-325 MG TABLET 1 TAB PO (18:02)
--- NOTE | 2021-03-23 18:05 | ADMGEN ---
This patient, Dm Santiago, was admitted to Medical Room 255-. Patient/family oriented to hospital policies and general routines including ID bracelet, bed and alarms, visiting hours, pain management, procedures, bathroom and other care routines, personal items, smoking policy, room service/diet, and visiting hours. Information on how to activate the Rapid Response Team has been discussed. Patient/Family are encouraged to report perceived risks to care and to ask questions if they do not understand what they are told or what they should do.
[2021-03-23] MEDS: LACTATED RINGERS 1,000 ML 100 ML IV CONT (18:19)
[2021-03-23] MEDS: ONDANSETRON INJ 4 MG/2 ML VIAL IV PUSH (19:09)
[2021-03-23] MEDS: MORPHINE SULFATE (*CRX) 4 MG/ML INJ IV PUSH (22:00)
[2021-03-23] MEDS: FAMOTIDINE 20 MG/2 ML VIAL IV PUSH (22:02)
[2021-03-23] MEDS: ENOXAPARIN 30 MG/0.3 ML SYRINGE SUB-Q (22:02)
[2021-03-24] VITALS (10 sets, daily range): BP systolic 125–143; BP diastolic 73–88; PULSE 89–103; RESP 14–20; TEMP 36.1–36.6; O2SAT 91–97
[2021-03-24] MEDS: HYDROcodone/acetaminophen (*CRX) 10-325 MG TABLET 1 TAB PO ×4 (00:24→19:53)
[2021-03-24] MEDS: LACTATED RINGERS 1,000 ML 100 ML IV CONT (04:28)
[2021-03-24 05:54] LABS: Hematocrit 40.2 % (42.0-52.0); Hemoglobin 12.5 g/dL (14.0-18.0); Mean Corpuscular HGB Conc 31.1 g/dl (32-36); Mean Corpuscular Hemoglobin 25.3 pg (26-34); Mean Corpuscular Volume 81.4 fl (80-100); Mean Platelet Volume 9.7 fl (7.4-10.4); Platelet Count Result 317 k/mm3 (150-375); Red Blood Count 4.94 M/mm3 (4.6-6.20); Red Cell Distribution Width 15.6 % (11.5-14.5); White Blood Count 9.9 K/mm3 (4.5-10.0)
[2021-03-24 06:09] LABS: Anion Gap 10 mmol/L (8-16); Blood Urea Nitrogen 9 mg/dL (9-20); Calcium 9.2 mg/dL (8.4-10.2); Carbon Dioxide 23 mmol/L (22-30); Chloride 99 mmol/L (98-107); Estimated CRCL calculation 122 ml/min; Estimated Glomerular Filt Rate > 60; Glucose 115 mg/dL (65-110); Potassium 4.3 mmol/L (3.4-5.0); Sodium 132 mmol/L (137-145)
[2021-03-24] MEDS: MORPHINE SULFATE (*CRX) 4 MG/ML INJ IV PUSH ×3 (06:56→21:28)
--- NOTE | 2021-03-24 09:13 | PM.PNGS ---
Progress Note: A&P Assessment and Plan (1) Diverticulitis large intestine: Qualifiers: Diverticulitis bleeding: without bleeding Diverticulitis complication: unspecified complication status Qualified Code(s): K57.32 - Diverticulitis of large intestine without perforation or abscess without bleeding Code(s): K57.32 - Diverticulitis of large intestine without perforation or abscess without bleeding Status: Chronic Assessment and Plan: Doing well postop day 1. Saline lock IV with good oral intake. Advance diet. Ambulate more today. Recheck labs again tomorrow. Subjective Subjective Date/Time Seen: 03/24/21 09:13 Post Op day: 1 Patient reports: still having pain, no flatus, no bowel movement and afebrile Review of Systems Review of Systems: All systems reviewed & are unremarkable except as noted in HPI and below Constitutional: Constitutional: Denies headache(s) Cardiovascular: Cardiovascular: Denies chest pain and Denies dyspnea Respiratory: Respiratory: Denies cough and Denies dyspnea Gastrointestinal: Gastrointestinal: Reports as per HPI Neurologic: Denies confusion and Denies headache(s) Exam Const: General: comfortable and no acute distress; No confusion Orientation/consciousness: patient oriented x3 and No confusion GI: Inspection: non-distended, incision (Incisions dry and healing well) and obesity GI Palp: Yes Soft to palpation and Yes Tenderness to palpation present (GI) Auscultation: Hypoactive bowel sounds present Neuro: General: patient oriented x3, no focal motor deficits and No confusion Extrem: General: no calf tenderness and no edema Psych: Affect: normal affect Insight: Good insight present (Psych) Judgement: Good judgement present (Psych) Objective Data Vital Signs Vital Signs: Vital Signs - 24 hr 03/23/21 10:15 03/23/21 16:20 03/23/21 16:34 Temperature 36.5 C 36.1 C L Pulse Rate 65 84 85 Respiratory Rate 20 18 20 Blood Pressure 131/82 138/92 H 147/93 H Pulse Oximetry 99 95 98 03/23/21 16:35 03/23/21 16:50 03/23/21 17:05 Temperature Pulse Rate 85 92 99 Respiratory Rate 26 H 27 H 28 H Blood Pressure 137/87 140/89 Pulse Oximetry 100 98 90 03/23/21 17:20 03/23/21 17:35 03/23/21 18:05 Temperature 36.0 C L Pulse Rate 93 88 93 Respiratory Rate 20 22 H 14 Blood Pressure 137/85 138/87 150/92 H Pulse Oximetry 92 93 97 03/23/21 18:20 03/23/21 18:50 03/23/21 20:00 Temperature 36.2 C L 36.1 C L Pulse Rate 97 90 Respiratory Rate 16 18 Blood Pressure 150/85 H 156/88 H Pulse Oximetry 97 98 97 03/23/21 22:05 03/24/21 00:54 03/24/21 06:00 Temperature 36.0 C L 36.6 C 36.2 C L Pulse Rate 88 103 H 95 Respiratory Rate 18 20 18 Blood Pressure 123/82 126/73 137/88 Pulse Oximetry 97 92 95 Intake/Output Intake/Output: Intake & Output 03/21/21 03/22/21 03/23/21 03/24/21 23:59 23:59 23:59 23:59 Intake Total 600 1350 Output Total 80 600 Balance 520 750 Meds/Results Medications: Active Medications Generic Name Dose Route Start Last Admin Trade Name Freq PRN Reason Stop Dose Admin Acetaminophen 500 mg 03/23/21 17:42 Acetaminophen 500 Mg Tablet PO Q6H PRN Mild Pain (1-3) or Fever Hydrocodone Bitart/Acetaminophen 1 tab 03/23/21 17:42 Hydrocodone/Acetaminophen (*Crx) 5-325 Mg Tablet PO Q4H PRN Pain Rated 4-6 Hydrocodone Bitart/Acetaminophen 1 tab 03/23/21 17:42 03/24/21 00:24 Hydrocodone/Acetaminophen (*Crx) 10-325 Mg Tablet PO 1 tab Q4H PRN Administration Pain Rated 7-10 Alvimopan 12 mg 03/24/21 21:00 Alvimopan 12 Mg Capsule PO 03/31/21 21:01 Q12HR SANDRA Enoxaparin Sodium 30 mg 03/23/21 21:00 03/23/21 22:02 Enoxaparin 30 Mg/0.3 Ml Syringe SUB-Q 30 mg Q12HR SANDRA Administration Famotidine 20 mg 03/24/21 21:00 Famotidine 20 Mg Tablet PO Q12HR SANDRA Lactated Ringer's 1,000 mls @ 80 mls/hr 03/23/21 17:42 03/24/21 04:28 Lr - Lact
[2021-03-24] MEDS: ENOXAPARIN 30 MG/0.3 ML SYRINGE SUB-Q ×2 (09:44→21:26)
--- NOTE | 2021-03-24 15:37 | WPDANESPN ---
Anes - Prog Note Post-Op Date/Time: 03/24/21 15:37 Cardiovascular status: normal Respiratory status: normal Airway patency: baseline Mental status: baseline Post-Op hydration status: normal Vital Signs: Last Vital Signs Temp 36.2 C L 03/24/21 14:05 Pulse 93 03/24/21 14:05 Resp 14 03/24/21 14:05 BP 125/85 03/24/21 14:05 Pulse Ox 95 03/24/21 15:13 Pain Score (VAS): 08/21 I/O: Intake & Output 03/23/21 03/24/21 03/24/21 23:59 07:59 15:59 Intake Total 400 1350 240 Output Total 80 600 Balance 320 750 240 Laboratory Tests 03/24/21 05:19 03/24/21 05:19 03/24/21 03/24/21 05:19 05:19 WBC 9.9 RBC 4.94 Hgb 12.5 L Hct 40.2 L MCV 81.4 MCH 25.3 L MCHC 31.1 L RDW 15.6 H Plt Count 317 MPV 9.7 Sodium 132 L Potassium 4.3 Chloride 99 Carbon Dioxide 23 Anion Gap 10 BUN 9 Creatinine 1.00 Estim Creat Clear Calc 122 Estimated GFR > 60 Glucose 115 H Calcium 9.2 Post-procedural complaints: none Patient Feedback: Patient satisfied with anesthetic care.
[2021-03-24] MEDS: MORPHINE SULFATE (*CRX) 2 MG/ML INJ IV PUSH (17:53)
[2021-03-24] MEDS: FAMOTIDINE 20 MG TABLET PO (21:26)
[2021-03-24] MEDS: ALVIMOPAN 12 MG CAPSULE PO (21:26)
[2021-03-25] VITALS (7 sets, daily range): BP systolic 139–155; BP diastolic 82–92; PULSE 98–109; RESP 18–20; TEMP 36.6–37.2; O2SAT 92–100
[2021-03-25] MEDS: HYDROcodone/acetaminophen (*CRX) 10-325 MG TABLET 1 TAB PO (04:07)
[2021-03-25 05:47] LABS: Hematocrit 41.3 % (42.0-52.0); Hemoglobin 13.1 g/dL (14.0-18.0); Mean Corpuscular HGB Conc 31.7 g/dl (32-36); Mean Corpuscular Hemoglobin 25.8 pg (26-34); Mean Corpuscular Volume 81.5 fl (80-100); Mean Platelet Volume 9.4 fl (7.4-10.4); Platelet Count Result 294 k/mm3 (150-375); Red Blood Count 5.07 M/mm3 (4.6-6.20); Red Cell Distribution Width 15.5 % (11.5-14.5); White Blood Count 10.7 K/mm3 (4.5-10.0)
[2021-03-25] MEDS: FAMOTIDINE 20 MG TABLET PO (08:57)
[2021-03-25] MEDS: ALVIMOPAN 12 MG CAPSULE PO ×2 (08:57→20:23)
[2021-03-25] MEDS: ENOXAPARIN 30 MG/0.3 ML SYRINGE SUB-Q ×2 (08:57→20:23)
--- NOTE | 2021-03-25 13:31 | PM.PNGS ---
Progress Note: A&P Assessment and Plan (1) Diverticulitis large intestine: Qualifiers: Diverticulitis bleeding: without bleeding Diverticulitis complication: unspecified complication status Qualified Code(s): K57.32 - Diverticulitis of large intestine without perforation or abscess without bleeding Code(s): K57.32 - Diverticulitis of large intestine without perforation or abscess without bleeding Status: Chronic Assessment and Plan: Doing well postop day 2 IV is Saline locked, but oral intake may be slowing. Diet was advanced yesterday but patient is self regulating back down to clears in view of his nausea. Ambulate more today. Recheck labs again tomorrow. I will have the nurse call if not improving on oral intake by supper and reinstitute some IV fluids to prevent dehydration if this happens. Subjective Subjective Date/Time Seen: 03/25/21 13:31 Post Op day: 2 (Postop day 2 with slight nausea) Patient reports: no flatus, no bowel movement, nausea and vomiting ( x1 early today) Interval history: patient up walking in the room when I entered the room. States that he is spitting but has thrown up once today. No bowel movement yet. Review of Systems Review of Systems: All systems reviewed & are unremarkable except as noted in HPI and below Constitutional: Constitutional: Denies headache(s) ENT: Denies headache(s) Cardiovascular: Cardiovascular: Denies chest pain and Denies dyspnea Respiratory: Respiratory: Denies cough and Denies dyspnea Gastrointestinal: Gastrointestinal: Reports as per HPI Neurologic: Denies confusion and Denies headache(s) Psychiatric: Psychiatric: Denies confusion Exam Const: General: cooperative, comfortable, no acute distress, alert and awake; No confusion Orientation/consciousness: patient oriented x3 and No confusion Eyes: Conjunctivae: conjunctivae normal Sclera: sclerae normal Pupils: Equal, round and reactive pupils present EOM: EOMs intact bilaterally Resp: Effort & Inspection: normal respiratory effort Auscultation: clear to auscultation bilaterally Cardio: Rate: regular rate Rhythm: regular rhythm GI: Inspection: non-distended, incision (Incisions dry and healing well) and obesity GI Palp: Yes Firmness to palpation present (GI) Auscultation: Hypoactive bowel sounds present Skin: General skin exam: normal color, turgor normal and no erythema Lesions: no lesions Rashes: no rashes Trauma: no lacerations or abrasions Neuro: General: patient oriented x3, no focal motor deficits and No confusion Cranial nerves: Yes Equal, round and reactive pupils present Motor exam (neuro): Motor abnormalities not present Extrem: General: no clubbing, cyanosis or edema, no calf tenderness and no edema Psych: Affect: normal affect Thought process: Normal thought process present Insight: Good insight present (Psych) Judgement: Good judgement present (Psych) Objective Data Vital Signs Vital Signs: Vital Signs - 24 hr 03/24/21 14:05 03/24/21 15:13 03/24/21 17:38 Temperature 36.2 C L Pulse Rate 93 Respiratory Rate 14 Blood Pressure 125/85 Pulse Oximetry 95 95 97 03/24/21 18:05 03/24/21 20:50 03/25/21 04:25 Temperature 36.6 C 36.3 C L 36.6 C Pulse Rate 100 97 109 H Respiratory Rate 14 20 20 Blood Pressure 143/87 H 135/82 139/90 Pulse Oximetry 92 91 92 03/25/21 08:30 03/25/21 08:57 03/25/21 12:00 Temperature 37.1 C 37.2 C Pulse Rate 101 H 100 Respiratory Rate 20 20 20 Blood Pressure 140/92 H 145/90 H Pulse Oximetry 100 98 97 Intake/Output Intake/Output: Intake & Output 03/22/21 03/23/21 03/24/21 03/25/21 23:59 23:59 23:59 23:59 Intake Total 600 2110 290 Output Total 80 2350 600 Balance [phone] -[phone] -772 Meds/Results Medications: Active Medications Generic Name Dose Route Start Last Admin Trade Name Eulalioq PRN Reason Stop Dose Admin Acetaminophen 500 mg 03/23/21 17:42 Acetaminophen 500 Mg Tablet PO
[2021-03-25 13:52] LABS: Anion Gap 10 mmol/L (8-16); Blood Urea Nitrogen 10 mg/dL (9-20); Calcium 9.8 mg/dL (8.4-10.2); Carbon Dioxide 26 mmol/L (22-30); Chloride 100 mmol/L (98-107); Estimated CRCL calculation 135 ml/min; Estimated Glomerular Filt Rate > 60; Glucose 131 mg/dL (65-110); Potassium 4.2 mmol/L (3.4-5.0); Sodium 136 mmol/L (137-145)
[2021-03-25] MEDS: FAMOTIDINE 20 MG TABLET 40 MG PO (20:23)
[2021-03-25] MEDS: SIMETHICONE 80 MG TAB.CHEW PO (20:23)
[2021-03-26] VITALS: BP 135/90; PULSE 99; RESP 18; TEMP 36.1; O2SAT 96
[2021-03-26] MEDS: ONDANSETRON INJ 4 MG/2 ML VIAL IV PUSH (00:30)
[2021-03-26 04:00] VITALS: BP 137/87; PULSE 100; RESP 18; TEMP 36.7; O2SAT 97
[2021-03-26 05:55] LABS: Hematocrit 40.7 % (42.0-52.0); Hemoglobin 12.9 g/dL (14.0-18.0); Mean Corpuscular HGB Conc 31.7 g/dl (32-36); Mean Corpuscular Hemoglobin 26.1 pg (26-34); Mean Corpuscular Volume 82.4 fl (80-100); Mean Platelet Volume 9.6 fl (7.4-10.4); Platelet Count Result 290 k/mm3 (150-375); Red Blood Count 4.94 M/mm3 (4.6-6.20); Red Cell Distribution Width 15.7 % (11.5-14.5); White Blood Count 12.7 K/mm3 (4.5-10.0)
[2021-03-26 06:13] LABS: Anion Gap 9 mmol/L (8-16); Blood Urea Nitrogen 12 mg/dL (9-20); Calcium 9.5 mg/dL (8.4-10.2); Carbon Dioxide 27 mmol/L (22-30); Chloride 96 mmol/L (98-107); Estimated CRCL calculation 122 ml/min; Estimated Glomerular Filt Rate > 60; Glucose 111 mg/dL (65-110); Potassium 3.9 mmol/L (3.4-5.0); Sodium 132 mmol/L (137-145)
[2021-03-26 09:43] VITALS: BP 139/85; PULSE 80; RESP 16; TEMP 36.2; O2SAT 96
[2021-03-26] MEDS: ALVIMOPAN 12 MG CAPSULE PO ×2 (10:35→21:12)
[2021-03-26] MEDS: SIMETHICONE 80 MG TAB.CHEW PO ×4 (10:35→21:12)
[2021-03-26] MEDS: ENOXAPARIN 30 MG/0.3 ML SYRINGE SUB-Q ×2 (10:35→21:11)
--- NOTE | 2021-03-26 10:51 | PC.NURSE ---
UNABLE TO GIVE PO PEPCID ON TIME, PHARMACY NOTIFIED.
--- NOTE | 2021-03-26 13:04 | PM.PNGS ---
Progress Note: A&P Assessment and Plan (1) Diverticulitis large intestine: Qualifiers: Diverticulitis bleeding: without bleeding Diverticulitis complication: unspecified complication status Qualified Code(s): K57.32 - Diverticulitis of large intestine without perforation or abscess without bleeding Code(s): K57.32 - Diverticulitis of large intestine without perforation or abscess without bleeding Status: Chronic Assessment and Plan: Doing ok postop day # 3. IV is Saline locked, but oral intake seems to be improving. Diet was advanced Saturday but patient is self regulating back down to clears in view of his nausea. his nausea seems to be improving and he is not in any acute distress he is not really having any vomiting the last 24 hours. Ambulate more today. Recheck labs again tomorrow. I believe he still has an ileus he needs to stand other day or so. Still has not yet had a bowel movement and we will await that. I will have the nurse call if not improving on oral intake by supper and reinstitute some IV fluids to prevent dehydration if this happens. Patient agrees to try some full liquids soup for lunch and see how it goes. Continuing on Entereg Subjective Subjective Date/Time Seen: 03/26/21 13:05 Post Op day: 3 ( still with ileus that may be beginning to resolve) Patient reports: no new complaints, no flatus, no bowel movement and nausea ( less than yesterday but still present occasionally) Interval history: The patient was lying in bed when I entered the room. He states he feels okay still no flatus or bowel movement. He is tolerating clear liquids without much nausea although occasionally he has drainage in the back this throat which he coughs and gags little bit on. No vomiting since I was here yesterday. He has not thirsty and has been tolerating clear liquids. He did have juices for breakfast this morning. I encouraged him to order an try some full liquids soup for lunch. Review of Systems Review of Systems: All systems reviewed & are unremarkable except as noted in HPI and below Constitutional: Constitutional: Denies headache(s) ENT: Denies headache(s) Cardiovascular: Cardiovascular: Denies chest pain and Denies dyspnea Respiratory: Respiratory: Denies cough and Denies dyspnea Gastrointestinal: Gastrointestinal: Reports as per HPI Neurologic: Denies confusion and Denies headache(s) Psychiatric: Psychiatric: Denies confusion Exam Const: General: cooperative, comfortable, no acute distress, alert and awake; No confusion Orientation/consciousness: patient oriented x3 and No confusion HENMT: Head: normocephalic, atraumatic, no contusions and no scalp lesions Ears: external ears normal General nose exam: Normal external nose present Face and sinus: face symmetric and dry mucous membranes Mouth: Yes Normal oral and palatal mucosa present and Yes tongue normal Throat: posterior oropharynx normal Resp: Effort & Inspection: normal respiratory effort Auscultation: clear to auscultation bilaterally Cardio: Rate: regular rate Rhythm: regular rhythm GI: Inspection: non-distended, incision (Incisions dry and healing well), obesity and other ( abdomen rounded but soft) GI Palp: No abdominal tenderness Auscultation: normal bowel sounds : Penis: Yes normal penis Scrotum: scrotum normal Testes: Testes normal, no masses and no testicular tenderness Skin: General skin exam: normal color, turgor normal and no erythema Lesions: no lesions Rashes: no rashes Trauma: no lacerations or abrasions Neuro: General: patient oriented x3, no focal motor deficits and No confusion Cranial nerves: Yes Equal, round and reactive pupils present Motor exam (neuro): Motor abnormalities not present Extrem: General: no clubbing, cyanosis or edema, no calf tenderness and no edema Psych: Affect: normal affect Thought process: Normal thought process present Insight: Good insight pre
[2021-03-26] MEDS: FAMOTIDINE 20 MG TABLET 40 MG PO ×2 (13:20→21:11)
[2021-03-26 14:00] VITALS: BP 131/88; PULSE 91; RESP 18; TEMP 36.6; O2SAT 98
[2021-03-26 17:38] VITALS: BP 145/93; PULSE 89; RESP 18; TEMP 36.8; O2SAT 97
[2021-03-26 22:00] VITALS: BP 132/91; PULSE 105; RESP 18; TEMP 36.6; O2SAT 97
[2021-03-27 04:00] VITALS: BP 130/93; PULSE 99; RESP 18; TEMP 36.4; O2SAT 97
[2021-03-27] MEDS: FAMOTIDINE 20 MG TABLET 40 MG PO (08:03)
[2021-03-27] MEDS: ALVIMOPAN 12 MG CAPSULE PO (08:04)
[2021-03-27] MEDS: ENOXAPARIN 30 MG/0.3 ML SYRINGE SUB-Q (08:04)
[2021-03-27] MEDS: SIMETHICONE 80 MG TAB.CHEW PO ×2 (08:04→12:23)
[2021-03-27 10:00] VITALS: BP 134/85; PULSE 93; RESP 16; TEMP 36.7; O2SAT 97
--- NOTE | 2021-03-27 10:38 | P.DS_ITS ---
DS: Admitting Diagnosis Admitting Diagnosis * Diverticulitis * obesity DS: Discharge Diagnosis Discharge Diagnosis (1) Diverticulitis large intestine: Qualifiers: Diverticulitis bleeding: without bleeding Diverticulitis complication: unspecified complication status Qualified Code(s): K57.32 - Diverticulitis of large intestine without perforation or abscess without bleeding Code(s): K57.32 - Diverticulitis of large intestine without perforation or abscess without bleeding Status: Chronic (2) BMI 38.0-38.9,adult: Code(s): Z68.38 - Body mass index [BMI] 38.0-38.9, adult Status: Chronic DS: Summary Hospital Course Hospital Course: patient is a 40-year-old man who had had multiple episodes of diverticulitis in the last 8-9 months. These had frequently responded to outpatient treatment. Patient was seen in the office and plans for laparoscopic sigmoidectomy were made. Two weeks before his surgery, he again had to go to the emergency room with an episode of diverticulitis and was treated with antibiotics. This again resolved. He was prepared for surgery and taken to the operating room on the day of admission 03/23/2021. Laparoscopic left colectomy with mobilization of the splenic flexure was performed. This was hand access laparoscopic colectomy. Hand-sewn anastomosis was performed. Postoperatively the patient had slow return of bowel function but on postop day 3 had bowel movement and was very comfortable with really no analgesics. He was ambulating independently. His white blood cell count had gone up to 12,700 on 03/26. This was repeated on 03/27 and came back normal at 7900. He was discharged in good condition on 03/27/2021. Pathology is pending at the time of this dictation. Time Spent with Patient Time attestation: Total time spent providing and/or coordinating discharge services: Exam GI: Inspection: non-distended, incision ( incisions all healing well) and obesity GI Palp: Yes Soft to palpation and Yes Tenderness to palpation present (GI) ( minimal tenderness) Auscultation: normal bowel sounds DS: Data Data Completed and Pending Pending studies at discharge: Pending at discharge 03/23/21 14:44 Surgical [PTH] Routine Surgical [PTH] Routine Discharge Plan Discharge Attending physician on discharge: Vinayak Landa Discharging Clinician: Vinayak Landa Anticipated Discharge Date/Time: 03/27/21 11:25 Patient Disposition: Home, Self-Care Activity: may shower, no straining and as tolerated Diet: as tolerated and regular Wound Care Instructions: incision open to air Discharge Instructions: * Ambulate 3-4 x per day and as tolerated. * No lifting over 15-20lbs. * May bathe or shower. * Stairs are OK. * May drive a car in 3 days. Patient Instructions: Antibiotic Form Stand Alone Forms: General Discharge Information Follow-up/Referrals: Vinayak Landa MD [Physician] - 2 Weeks Discharge Medications: New hydrocodone-acetaminophen 5-325 mg tablet 1 - 2 tablet PO Q6H PRN (Reason: pain) Qty: 7 RF: 0 Continued No Home Medications RF: 0 Date of admission: 03/23/21 17:42 Primary Care Provider: Boris Desai Admitting Provider: Vinayak Landa Attending physician on admission: Vinayak Landa Condition: Improved
[2021-03-27 11:10] LABS: Hematocrit 39.1 % (42.0-52.0); Hemoglobin 12.4 g/dL (14.0-18.0); Mean Corpuscular HGB Conc 31.7 g/dl (32-36); Mean Corpuscular Hemoglobin 25.9 pg (26-34); Mean Corpuscular Volume 81.6 fl (80-100); Mean Platelet Volume 9.3 fl (7.4-10.4); Platelet Count Result 302 k/mm3 (150-375); Red Blood Count 4.79 M/mm3 (4.6-6.20); Red Cell Distribution Width 15.4 % (11.5-14.5); White Blood Count 7.9 K/mm3 (4.5-10.0)
[2021-03-27 14:00] VITALS: BP 136/82; PULSE 99; RESP 18; TEMP 36.1; O2SAT 97
== END 2021-03-27 14:03 | disposition home or self-care (01) | DRG 331 ==
LOC: ANH2MED 17:43
PROVIDERS: Admitting Provider Surgery; PCP Internal Medicine; Visit Provider Surgery
PROC: 0D1E4Z4 Bypass Large Intestine to Cutaneous, Percutaneous Endoscopic Approach (ICD-10-PCS; principal; 2021-03-23 12:30)
DX: K57.32 Diverticulitis of large intestine without perforation or abscess without bleeding (principal); E66.9 Obesity, unspecified; Z68.38 Body mass index [BMI] 38.0-38.9, adult
CPT/HCPCS: 36415; 80048; 85027; 86850; 86900; 86901; 88305; 88307; A9270; C1713; C1729; C9803; J0330; J0690; J1170; J1650; J1885; J2250; J2270; J2405; J2710; J3010; J7030; J7120; U0003; U0005

== ENCOUNTER 2021-06-20 13:01 | Emergency (ER) | payer OTHER, SELFPAY ==
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
[2021-06-20 13:07] VITALS: BP 139/86; PULSE 70; RESP 18; TEMP 36.6; O2SAT 99
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
[2021-06-20 16:00] VITALS: BP 138/80; PULSE 80; RESP 16; O2SAT 99
== END 2021-06-20 15:55 | disposition home or self-care (01) ==
PROVIDERS: Emergency Provider General Practice; PCP Internal Medicine
DX: S80.00XA Contusion of unspecified knee, initial encounter (principal); S80.819A Abrasion, unspecified lower leg, initial encounter; V89.2XXA Person injured in unspecified motor-vehicle accident, traffic, initial encounter
CPT/HCPCS: 73564; 99284

== ENCOUNTER 2022-02-20 13:06 | Observation (INO) | payer OTHER, SELFPAY ==
--- NOTE | ~2022-02-20 | CT_ITS ---
EXAMINATION: CT abdomen pelvis wo con DATE: 02/20/2022 14:28 INDICATION: Left lower quadrant abdominal pain. TECHNIQUE: Computed tomography (CT) of the abdomen and pelvis was performed without intravenous contr ast. Automated exposure control and iterative reconstruction technique were employed. The dose-length product was 1562.48 mGy-cm. COMPARISON: 03/07/2021 FINDINGS: Lung bases are clear. Heart size is normal. No pericardial or pleural effusion. Liver, gallbladder, s pleen, pancreas, bilateral adrenal glands and kidneys are normal. No urolithiasis or hydronephrosis. Bladder is normal. Small fat-containing right inguinal hernia. Small bowel and appendix are normal. M ild diverticulosis with sigmoid and descending colon predominance. There is wall thickening of the di stal colon beginning in the descending colon with associated surrounding inflammatory stranding consi stent with colitis. There is however focally more severe inflammatory stranding to suggest a few tiny foci of extraluminal gas within a diverticulum at the junction of the descending and sigmoid colon w hich is more suspicious for diverticulitis. No pneumatosis, abscess or free intraperitoneal gas. Very small fat-containing umbilical hernia with infraumbilical midline abdominal surgical scar. No pathol ogically enlarged abdominal or pelvic lymphadenopathy. Sacralized L5 segment. Mild to moderate bilate ral hip osteoarthritis. IMPRESSION: 1. Colonic wall thickening and surrounding inflammatory stranding beginning and most severe in the re gion of a diverticulum at the distal descending colon with suggestion of a a few tiny foci of extralu ishan gas suspicious for diverticulitis with microperforation. The wall thickening and contrast durin g however extension significantly more distally than would be expected for diverticulitis raising con cern for superimposed distal colitis which could be infectious, inflammatory or ischemic in etiology. Reviewed, dictated and finalized at location B. IMPRESSION: 1. Colonic wall thickening and surrounding inflammatory stranding beginning and most severe in the region of a diverticulum at the distal descending colon wit h suggestion of a a few tiny foci of extraluminal gas suspicious for diverticul itis with microperforation. The wall thickening and contrast during however ext ension significantly more distally than would be expected for diverticulitis ra ising concern for superimposed distal colitis which could be infectious, inflam matory or ischemic in etiology.
[2022-02-20 13:14] VITALS: BP 145/86; PULSE 89; RESP 16; TEMP 36.9; O2SAT 100
[2022-02-20 14:07] LABS: Basophils Percent Auto 0.1 % (0.2-1.2); Eosinophils Absolute Auto 0.1 K/mm3 (0-0.3); Hematocrit 41.9 % (42.0-52.0); Hemoglobin 13.9 g/dL (14.0-18.0); Immature Granulocyte Absolute 0.02 K/mm3 (0.00-0.031); Immature Granulocyte Percent A 0.3 % (0-0.5); Lymphocytes Absolute Auto 1.75 K/mm3 (0.9-3.2); Lymphocytes Percent Auto 24.1 % (18.3-44.2); Mean Corpuscular HGB Conc 33.2 g/dl (32-36); Mean Corpuscular Hemoglobin 27.4 pg (26-34); Mean Corpuscular Volume 82.5 fl (80-100); Mean Platelet Volume 9.9 fl (7.4-10.4); Monocytes Absolute Auto 0.6 K/mm3 (0.1-0.6); Monocytes Percent Auto 8.5 % (2.6-8.5); Neutrophils Absolute Auto 4.8 K/mm3 (1.3-6.7); Platelet Count Result 308 k/mm3 (150-375); Red Blood Count 5.08 M/mm3 (4.6-6.20); Red Cell Distribution Width 14.7 % (11.5-14.5); White Blood Count 7.3 K/mm3 (4.5-10.0)
--- NOTE | 2022-02-20 14:14 | ED.ABDPAIN ---
HPI - Abdominal Pain General Chief Complaint: Abdominal Pain Stated Complaint: lower abd pain. Time Seen by Provider: 02/20/22 14:10 History of Present Illness HPI narrative: 41-year-old male presents the emergency room for evaluation of a left lower quadrant pain. Patient describes the pain as sharp intermittent pain that does not radiate. Patient does have a history of diverticulitis requiring surgical intervention. Denies nausea or vomiting or constipation. Does endorse soft stools, most recently this morning. Is flatulent. Denies fever or dysuria. Related Data Home Medications Medication Instructions Recorded Confirmed No Home Medications 12/25/21 12/25/21 Allergies Allergy/AdvReac Type Severity Reaction Status Date / Time No Known Allergies Allergy Verified 12/25/21 13:09 Review of Systems Review of Systems: CONSTITUTIONAL: Denies fever, chills, or sweats. EYES: Denies visual changes, redness, or discharge. ENT: Denies rhinorrhea, congestion, sore throat, or otalgia. CARDIOVASCULAR: Denies chest pain, palpitations, or edema. RESPIRATORY: Denies cough or dyspnea. GASTROINTESTINAL: Reports abdominal pain GENITOURINARY: Denies dysuria or hematuria. SKIN: Denies rash or itching. MUSCULOSKELETAL: Denies back pain, joint pain, or myalgia. NEUROLOGIC: Denies headache, numbness, dizziness, or weakness. PSYCHIATRIC: Denies anxiety or depression. [facility] Past Medical History Medical History Diverticulitis large intestine Obesity Surgical History Surgical History History of colonoscopy S/P laparoscopic-assisted sigmoidectomy 03/23/21 Hand access laparoscopic left colectomy, laparoscopic mobilization of splenic flexure, hand-sewn anastomosis Family History Family History Father Heart disease Mother Hypertension Social History Social History Smoking status: Never smoker Second hand tobacco smoke exposure: No Alcohol intake: current Drinks per week: 2 Substance use: never Substance use type: does not use Additional occupation/education comments: [employer] Gender identity (if verbalized by the patient): Male Spiritual care concerns: No Exam Narrative: GENERAL: Well-appearing, well-nourished, no physical limitations, and in no acute distress. HEAD: Normocephalic, atraumatic. EYES: Conjunctivae normal, PERRLA and EOMI. CHEST: Clear to auscultation. No respiratory distress. No wheezes rales or rhonchi. No tenderness. HEART: Regular rate and rhythm. No murmur heard. Normal peripheral pulses. ABDOMEN: Soft, left lower quadrant tenderness, nondistended, normal active bowel sounds.. BACK: No CVA tenderness EXTREMITIES: Normal range of motion. No edema. No clubbing or cyanosis SKIN: Warm, dry, no rash. No noted wounds NEURO: No focal deficits. Alert and oriented x3. MAEW. CN's II-XI intact bilaterally, normal gait PSYCH: Cooperative. Normal mood and affect. Course Vital Signs Vital signs: Vital Signs Temperature 36.9 C 02/20/22 13:14 Pulse Rate 89 02/20/22 13:14 Respiratory Rate 16 02/20/22 13:14 Blood Pressure 145/86 H 02/20/22 13:14 Pulse Oximetry 100 02/20/22 13:14 Oxygen Delivery Room Air 02/20/22 13:14 Temperature 36.9 C 02/20/22 15:39 Pulse Rate 76 02/20/22 15:39 Respiratory Rate 16 02/20/22 15:39 Blood Pressure 137/76 02/20/22 15:39 Pulse Oximetry 98 02/20/22 15:39 Oxygen Delivery Room Air 02/20/22 15:39 MDM - Abdominal Pain Lab Data Result diagrams: 02/20/22 13:49 02/20/22 13:49 Labs: Lab Results 02/20/22 02/20/22 02/20/22 Range/Units 13:49 13:49 15:31 WBC 7.3 (4.5-10.0) K/mm3 RBC 5.08 (4.6-6.20) M/mm3 Hgb 13.9 L (14.0-18.0) g/dL Hct 41.9 L (42.0-52.
[2022-02-20 14:20] LABS: Alanine Aminotransferase 25 U/L (6-50); Albumin Level 4.5 g/dL (3.5-5.1); Alkaline Phosphatase 71 U/L (38-126); Anion Gap 5 mmol/L (8-16); Aspartate Amino Transferase 25 U/L (17-59); Bilirubin,Total 0.4 mg/dL (0.2-1.3); Blood Urea Nitrogen 11 mg/dL (9-20); Calcium 8.9 mg/dL (8.4-10.2); Carbon Dioxide 27 mmol/L (22-30); Chloride 105 mmol/L (98-107); Estimated CRCL calculation 113 ml/min; Estimated Glomerular Filt Rate > 60; Glucose 98 mg/dL (65-110); Lipase 165 U/L (23-300); Potassium 4.2 mmol/L (3.4-5.0); Sodium 137 mmol/L (137-145)
[2022-02-20 15:39] VITALS: BP 137/76; PULSE 76; RESP 16; TEMP 36.9; O2SAT 98
[2022-02-20 16:26] LABS: SARS-CoV-2 RNA PCR Negative
[2022-02-20 16:29] LABS: Appearance Urine Slightly Cloudy (Clear); Bilirubin Urine 1+ (Negative); Color Urine Yellow (Yellow); Glucose Urine UA Negative (Negative); Ketones Urine Negative (Negative); Leukocyte Esterase Ur 1+ LEU/UL (Negative); Nitrate Urine Negative (Negative); Protein Urine Trace mg/dL (Negative); Specific Grav Ur >= 1.030 (1.001-1.035)
[2022-02-20 16:30] LABS: Add Urine Microscopic? YES; Blood Urine Trace-Intact (Negative)
--- NOTE | 2022-02-20 16:31 | PM.IMHP ---
H&P: HPI History of Present Illness Date/Time: 02/20/22 16:31 Chief Complaint: LLQ abdominal pain Narrative: This is a 41-year-old male who has a history of descending colon diverticulitis status post hand-assisted laparoscopic left colectomy by Dr. Landa in March of 2021. He reportedly has done well since his surgery without any issues of diverticulitis. He also has not had a colonoscopy since his surgery. He reports that about 2-3 months ago he did have a short episode of lower abdominal pain that resolved at home without treatment. He got an appointment in the office with Dr. Landa due to the pain and by the time he saw him, the pain had already subsided. Then, about 5 days ago he noticed some mild LLQ abdominal pain. This would get worse by the end of the day. He reports backing off his diet and not eating much over the past few days because he was concerned this was diverticulitis. He denies fever, chills, nausea, or vomiting. His bowels have become more soft over the past two days with his last BM this morning. He denies bloody or black tarry stools. Even though the pain was tolerable, since it persisted, he decided to come into the ER today for evaluation. CT scan of the abdomen and pelvis showed acute sigmoid diverticulitis with microperforation. Labs showed a normal WBC count. He is afebrile and VS stable in the ER. Our service was contacted by the ED physician and he is being admitted to our service in this setting. The patient is seen in the ER. He reports his LLQ pain is still present but tolerable. No other complaints at this time. Review of Systems Review of Systems: All systems reviewed & are unremarkable except as noted in HPI and below Constitutional: Constitutional: Reports as per HPI, Denies fatigue and Denies fever(s) Eyes: Eyes: Reports no additional eye complaints and Denies change in vision ENT: Reports system reviewed and no additional complaints, except as documented and Reports Normal hearing present Cardiovascular: Cardiovascular: Reports no additional cardiovascular complaints, Denies chest pain and Denies leg edema Respiratory: Respiratory: Reports no additional respiratory complaints, Denies cough and Denies dyspnea Gastrointestinal: Gastrointestinal: Reports as per HPI, Reports no additional gastrointestinal complaints, Reports abdominal pain, Denies melena, Denies hematochezia, Reports loose stools, Denies nausea and Denies vomiting Genitourinary: Genitourinary: Reports no additional male genitourinary complaints and Denies dysuria Musculoskeletal: Musculoskeletal: Reports no additional musculoskeletal complaints, Denies deformity and Denies joint swelling Integumentary/Breasts: Skin/Breast: Reports system reviewed and no additional complaints, except as docu Neurologic: Reports system reviewed and no additional complaints, except as documented, Denies dizziness, Denies focal weakness, Denies numbness and Denies tingling PMFSH Past Medical History Medical History Diverticulitis large intestine Obesity Surgical History Surgical History History of colonoscopy S/P laparoscopic-assisted sigmoidectomy 03/23/21 Hand access laparoscopic left colectomy, laparoscopic mobilization of splenic flexure, hand-sewn anastomosis Family History Family History Father Heart disease Mother Hypertension Social History Social History Smoking status: Never smoker Second hand tobacco smoke exposure: No Alcohol intake: current Drinks per week: 2 Substance use: never Substance use type: does not use Additional occupation/education comments: [employer] Gender identity (if verbalized by the patient): Male Spiritual care concerns: No Meds Home Medications and Allergies Lizzy
[2022-02-20 16:33] LABS: Bacteria Urine Trace /hpf; Mucus Urine Few /lpf; Squamous Epithelial Cell Urine Occasional /hpf (Few); WBC Urine 51-75 /hpf
[2022-02-20 16:53] LABS: Lactic Acid Reflex 0.7 mmol/L (0.7-2.0)
[2022-02-20] MEDS: PIPERACILLIN/TAZOBACTAM SOD 4.5 GM in SODIUM CHLORIDE 0.9% IV 100 ML 200 ML IVPB (16:54)
[2022-02-20] MEDS: SODIUM CHLORIDE 0.9% IV 1,000 ML 125 ML IV CONT (16:55)
[2022-02-20 17:46] VITALS: BP 120/74; PULSE 72; RESP 16; O2SAT 99
--- NOTE | 2022-02-20 18:04 | PC.NURSE ---
patient transferred to the floor with IVF infusing
[2022-02-20 18:08] VITALS: BMI 38.5
--- NOTE | 2022-02-20 18:12 | ADMGEN ---
This patient, Dm Santiago, was admitted to [address] [place] [address] Room 330-01 at 1800. Patient/family oriented to hospital policies and general routines including ID bracelet, bed and alarms, visiting hours, pain management, procedures, bathroom and other care routines, personal items, smoking policy, room service/diet, and visiting hours. Information on how to activate the Rapid Response Team has been discussed. Patient/Family are encouraged to report perceived risks to care and to ask questions if they do not understand what they are told or what they should do.
[2022-02-20 20:00] VITALS: BP 167/92; PULSE 72; RESP 16; TEMP 36.8; O2SAT 97
[2022-02-21] VITALS (7 sets, daily range): BP systolic 126–146; BP diastolic 79–92; PULSE 69–77; RESP 16; TEMP 36.2–36.9; O2SAT 96–98
[2022-02-21] MEDS: SODIUM CHLORIDE 0.9% IV 1,000 ML 125 ML IV CONT ×2 (01:44→09:30)
[2022-02-21 06:17] LABS: Basophils Percent Auto 0.3 % (0.2-1.2); Eosinophils Absolute Auto 0.1 K/mm3 (0-0.3); Hematocrit 39.8 % (42.0-52.0); Hemoglobin 13.2 g/dL (14.0-18.0); Immature Granulocyte Absolute 0.01 K/mm3 (0.00-0.031); Immature Granulocyte Percent A 0.2 % (0-0.5); Lymphocytes Percent Auto 31.3 % (18.3-44.2); Mean Corpuscular HGB Conc 33.2 g/dl (32-36); Mean Corpuscular Volume 81.6 fl (80-100); Mean Platelet Volume 9.8 fl (7.4-10.4); Monocytes Absolute Auto 0.5 K/mm3 (0.1-0.6); Monocytes Percent Auto 8.4 % (2.6-8.5); Neutrophils Absolute Auto 3.6 K/mm3 (1.3-6.7); Neutrophils Percent Auto 58.8 % (45.5-73.1); Platelet Count Result 294 k/mm3 (150-375); Red Blood Count 4.88 M/mm3 (4.6-6.20); Red Cell Distribution Width 14.6 % (11.5-14.5); White Blood Count 6.1 K/mm3 (4.5-10.0)
[2022-02-21 06:35] LABS: Alanine Aminotransferase 20 U/L (6-50); Albumin Level 3.8 g/dL (3.5-5.1); Alkaline Phosphatase 63 U/L (38-126); Anion Gap 7 mmol/L (8-16); Aspartate Amino Transferase 21 U/L (17-59); Bilirubin,Total 0.4 mg/dL (0.2-1.3); Blood Urea Nitrogen 11 mg/dL (9-20); Calcium 8.4 mg/dL (8.4-10.2); Carbon Dioxide 25 mmol/L (22-30); Chloride 107 mmol/L (98-107); Estimated CRCL calculation 113 ml/min; Estimated Glomerular Filt Rate > 60; Glucose 85 mg/dL (65-110); Potassium 3.8 mmol/L (3.4-5.0); Sodium 139 mmol/L (137-145)
--- NOTE | 2022-02-21 11:44 | PM.PNGS ---
Progress Note: A&P Assessment and Plan (1) Diverticulitis of intestine with perforation without abscess or bleeding: Code(s): K57.80 - Diverticulitis of intestine, part unspecified, with perforation and abscess without bleeding Status: Acute Assessment and Plan: Clinically improving. WBC normal this morning and he is afebrile. Continue IV Zosyn Advance to clear liquids. If tolerating this, then he could be advanced to full liquids tonight for dinner. Repeat labs tomorrow. (2) BMI 38.0-38.9,adult: Code(s): Z68.38 - Body mass index [BMI] 38.0-38.9, adult Status: Chronic Plan I have discussed the patient's case and plan of care with Dr. Cortés. Subjective Subjective Date/Time Seen: 02/21/22 10:00 Patient reports: no new complaints, feels better, pain is less, flatus, no bowel movement (Last BM yesterday morning) and afebrile Interval history: Patient feeling well today. States he feels a little better with less abdominal pain. Denies any nausea or vomiting. He reports feeling hungry and eager to try liquids. Review of Systems Review of Systems: All systems reviewed & are unremarkable except as noted in HPI and below Exam Const: General: comfortable and no acute distress Nutritional Appearance: obese Orientation/consciousness: patient oriented x3 Resp: Effort & Inspection: no respiratory distress Auscultation: clear to auscultation bilaterally Cardio: Rate: regular rate Rhythm: regular rhythm GI: Inspection: non-distended and obesity GI Palp: Yes Soft to palpation, Yes Tenderness to palpation present (GI) (mostly in LLQ, very mildly tender in RLQ), No Guarding due to palpation present (GI) and No Rebound tenderness present Auscultation: normal bowel sounds Extrem: General: normal to inspection Psych: Insight: Good insight present (Psych) Objective Data Vital Signs Vital Signs: Vital Signs - 24 hr 02/20/22 13:14 02/20/22 15:39 02/20/22 17:46 Temperature 98.5 F 98.4 F Pulse Rate 89 76 72 Respiratory Rate 16 16 16 Blood Pressure 145/86 H 137/76 120/74 Pulse Oximetry 100 98 99 Oxygen Delivery Room Air Room Air 02/20/22 19:35 02/20/22 20:00 02/21/22 00:00 Temperature 98.3 F 98.5 F Pulse Rate 72 69 Respiratory Rate 16 16 Blood Pressure 167/92 H 130/90 Pulse Oximetry 97 98 Oxygen Delivery Room Air 02/21/22 04:00 02/21/22 08:00 Temperature 97.4 F L Pulse Rate 71 Respiratory Rate 16 Blood Pressure 146/92 H Pulse Oximetry 96 Oxygen Delivery Room Air Intake/Output Intake/Output: Intake & Output 02/18/22 02/19/22 02/20/22 02/21/22 23:59 23:59 23:59 23:59 Intake Total 100 1999 Balance 100 1999 Meds/Results Medications: Active Medications Generic Name Dose Route Start Last Admin Trade Name Freq PRN Reason Stop Dose Admin Hydromorphone HCl 0.5 mg 02/20/22 16:26 Hydromorphone Hcl Inj (*Crx) 1 Mg/Ml Syr IV PUSH Q4H PRN Pain Rated 7-10 Sodium Chloride 1,000 mls @ 125 mls/hr 02/20/22 16:30 02/21/22 09:30 Normal Saline Iv IV CONT 125 mls/hr .Q8H SANDRA Administration Acetaminophen 1,000 mg in 100 mls @ 400 mls/hr 02/20/22 16:43 Ofirmev 1,000 Mg Ivpb IVPB 02/21/22 16:42 Q6H PRN Pain Rated 4-6 Piperacillin/Tazobactam/Dextrose 3.375 gm in 50 mls @ 100 mls/hr 02/21/22 12:00 Zosyn 3.375 Gm/D5w 50ml Pm IVPB Q6HR SANDRA Ondansetron HCl 4 mg 02/20/22 16:26 Ondansetron Inj 4 Mg/2 Ml Vial IV PUSH Q4H PRN Nausea Radiology Results: ITS Impressions Abdomen/Pelvis CT 02/20/22 14:33 IMPRESSION: 1. Colonic wall thickening and surrounding inflammatory stranding beginning and most severe in the region of a diverticulum at the distal descending colon with suggestion of a a few tiny foci of extraluminal gas suspicious for diverticulitis with microperforation. The wall thickening and contrast during however extension significantly more distally than would be expected fo
[2022-02-21] MEDS: SODIUM CHLORIDE 0.9% IV 1,000 ML 75 ML IV CONT (21:49)
[2022-02-22 04:00] VITALS: BP 132/89; PULSE 70; RESP 16; TEMP 36.9; O2SAT 98
[2022-02-22 08:00] VITALS: BP 133/82; PULSE 70; RESP 14; TEMP 36.2; O2SAT 96
--- NOTE | 2022-02-22 11:47 | PM.DS ---
DS: Admitting Diagnosis Discharge Date 02/22/22 Admitting Diagnosis Acute diverticulitis of the sigmoid colon with microperforation without abscess or bleeding BMI 38, Obesity Abnormal Urinalysis DS: Discharge Diagnosis Discharge Diagnosis (1) Diverticulitis of intestine with perforation without abscess or bleeding: Code(s): K57.80 - Diverticulitis of intestine, part unspecified, with perforation and abscess without bleeding Status: Acute (2) BMI 38.0-38.9,adult: Code(s): Z68.38 - Body mass index [BMI] 38.0-38.9, adult Status: Chronic Assessment and Plan: Encouraged diet and lifestyle modifications to promote weight loss. F/u with PCP for further management. (3) Abnormal urinalysis: Code(s): R82.90 - Unspecified abnormal findings in urine Status: Acute Assessment and Plan: Urinalysis on admission abnormal and suggestive of possible urinary tract infection. Patient asymptomatic. He was covered with IV Zosyn for the diverticulitis. We awaited the urine culture, which showed no growth of any organisms. Would not need any further treatment with antibiotics, but he will be sent home with oral antibiotics for the diverticulitis that would also cover urinary. Recommended follow-up with his PCP in 1-2 weeks to repeat his urinalysis. DS: Summary Hospital Course Reason for hospitalization: This is a 41-year-old male who has a history of descending colon diverticulitis status post hand-assisted laparoscopic left colectomy by Dr. Landa in March of 2021. He presented to the ER on 02/20/2022 with left lower quadrant abdominal pain x5 days. Workup in the ER revealed CT evidence of acute sigmoid diverticulitis with micro perforation, no organized abscess. He had a normal white blood cell count. Our service was contacted by the ED physician and he was admitted to our service in this setting. Hospital Course: The patient was admitted and started on IV Zosyn. From the ER, he was put on bowel rest and made NPO. We continued IV fluids while NPO, IV analgesics PRN, and IV antiemetics PRN. He was monitored with serial abdominal exams and labs. His WBC count remained normal through the entire hospitalization. He was slowly advanced to a low fiber diet and has tolerated his diet well. His pain had completely resolved prior to discharge. Today, he is stable for discharge and will be sent home with another 7 days of oral antibiotics with instructions for follow-up. Status at Discharge Functional status at discharge: independent ambulation Overall status at discharge: patient is back to baseline Time Spent with Patient Time attestation: Total time spent providing and/or coordinating discharge services: Time spent: Less than 30 minutes Exam Const: General: comfortable, no acute distress and awake Nutritional Appearance: obese Orientation/consciousness: patient oriented x3 Resp: Effort & Inspection: no respiratory distress Auscultation: clear to auscultation bilaterally Cardio: Rate: regular rate Rhythm: regular rhythm GI: Inspection: non-distended and obesity GI Palp: Yes Soft to palpation, No Tenderness to palpation present (GI), No Guarding due to palpation present (GI) and No Rebound tenderness present Auscultation: normal bowel sounds Skin: General skin exam: normal color Neuro: General: moves all extremities and no focal motor deficits Extrem: General: normal to inspection Psych: Mental Status: mental status grossly normal DS: Data Imaging Radiologist's impression: ITS Impressions Abdomen/Pelvis CT 02/20/22 14:33 IMPRESSION: 1. Colonic wall thickening and surrounding inflammatory stranding beginning and most severe in the region of a diverticulum at the distal descending colon with suggestion of a a few tiny foci of extraluminal gas suspicious for diverticulitis with microperforation. The wall thickening and contrast during however extension significantly more dista
[2022-02-22 12:00] VITALS: BP 125/87; PULSE 61; RESP 16; TEMP 36.3; O2SAT 97
== END 2022-02-22 13:45 | disposition home or self-care (01) ==
LOC: ANHED 15:56 → ANH3MEDSUR 17:09
PROVIDERS: Emergency Medicine; Admitting Provider Surgery; Emergency Provider Nurse Practitioner Family; PCP Internal Medicine; Visit Provider Surgery
DX: K57.20 Diverticulitis of large intestine with perforation and abscess without bleeding (principal); E66.9 Obesity, unspecified; Z68.38 Body mass index [BMI] 38.0-38.9, adult; R82.90 Unspecified abnormal findings in urine; Z90.49 Acquired absence of other specified parts of digestive tract; Z20.822 Contact with and (suspected) exposure to COVID-19
CPT/HCPCS: 36415; 74176; 80053; 81001; 83605; 83690; 85025; 87086; 96361; 96365; 96376; 99285; C9803; G0378; J2543; J7030; U0003; U0005

== ENCOUNTER 2022-03-16 04:27 | Emergency (ER) | payer OTHER, SELFPAY ==
[2022-03-16 04:31] VITALS: BP 149/92; PULSE 85; RESP 18; TEMP 36.6; O2SAT 99
[2022-03-16] MEDS: ACETAMINOPHEN 325 MG TABLET 650 MG PO (05:14)
[2022-03-16] MEDS: ONDANSETRON INJ 4 MG/2 ML VIAL IV PUSH (05:15)
[2022-03-16] MEDS: SODIUM CHLORIDE 0.9% IV 1,000 ML 999 ML IV CONT (05:15)
[2022-03-16 05:29] LABS: Anion Gap 12 mmol/L (8-16); Blood Urea Nitrogen 12 mg/dL (9-20); Calcium 9.6 mg/dL (8.4-10.2); Carbon Dioxide 26 mmol/L (22-30); Chloride 100 mmol/L (98-107); Estimated CRCL calculation 125 ml/min; Estimated Glomerular Filt Rate > 60; Glucose 125 mg/dL (65-110); Potassium 3.8 mmol/L (3.4-5.0); Sodium 138 mmol/L (137-145)
[2022-03-16 05:53] LABS: SARS-CoV-2 RNA PCR Negative
--- NOTE | 2022-03-16 05:57 | ED.HA ---
HPI - Headache General Chief Complaint: Headache Stated Complaint: fatigue,[place], dizzy Time Seen by Provider: 03/16/22 04:38 History of Present Illness HPI Narrative: Patient is a 41-year-old male who presents ER with headache. Began earlier in the evening and is frontal. Gradual onset. Throbbing. Took some ibuprofen which did not help right away starting home. No fevers or chills or sweats. No nausea or vomiting. Reports recently returned from [place] where he was at about.me. Daughter was sick but does not believe that she had COVID-19. Patient is endorsing some mild nausea but no vomiting. He feels like he is dehydrated. Related Data Home Medications Medication Instructions Recorded Confirmed No Home Medications 12/25/21 02/20/22 Allergies Allergy/AdvReac Type Severity Reaction Status Date / Time No Known Allergies Allergy Verified 03/16/22 04:31 Review of Systems Review of Systems: All systems reviewed & are unremarkable except as noted in HPI and below Constitutional: Constitutional: Denies chills, Reports fatigue and Denies fever(s) ENT: Denies nasal congestion and Denies sore throat Gastrointestinal: Gastrointestinal: Denies abdominal pain, Reports nausea and Denies vomiting Neurologic: Denies syncope, Reports headache(s), Denies focal weakness and Denies numbness PMFSH Past Medical History Medical History Diverticulitis large intestine Obesity Surgical History Surgical History History of colonoscopy S/P laparoscopic-assisted sigmoidectomy 03/23/21 Hand access laparoscopic left colectomy, laparoscopic mobilization of splenic flexure, hand-sewn anastomosis Family History Family History Father Heart disease Mother Hypertension Social History Social History Smoking status: Never smoker Second hand tobacco smoke exposure: No Alcohol intake: current Drinks per week: 2 Substance use: never Substance use type: does not use Additional occupation/education comments: [employer] Gender identity (if verbalized by the patient): Male Spiritual care concerns: No Exam Narrative: GENERAL: Well-appearing, well-nourished, and in no acute distress. HEAD: Normocephalic, atraumatic. EYES: PERRLA and EOMI. NECK: Supple. CHEST: Clear to auscultation. No respiratory distress. HEART: Regular rate and rhythm. Normal peripheral pulses. EXTREMITIES: Normal range of motion. No edema. SKIN: Warm, dry, no rash. NEURO: Alert and oriented x3. PSYCH: Normal mood and affect. Course Course Emergency Course: Patient hydrated and given Tylenol. Feels improved. Zofran called nausea. Negative COVID test and normal BMP. Discharge home. Vital Signs Vital signs: Vital Signs Temperature 97.9 F 03/16/22 04:31 Pulse Rate 85 03/16/22 04:31 Respiratory Rate 18 03/16/22 04:31 Blood Pressure 149/92 H 03/16/22 04:31 Pulse Oximetry 99 03/16/22 04:31 Oxygen Delivery Room Air 03/16/22 04:31 Temperature 97.9 F 03/16/22 04:31 Pulse Rate 85 03/16/22 04:31 Respiratory Rate 18 03/16/22 04:31 Blood Pressure 149/92 H 03/16/22 04:31 Pulse Oximetry 99 03/16/22 04:31 Oxygen Delivery Room Air 03/16/22 04:31 MDM - Headache Lab Data Result diagrams: 03/16/22 05:09 Labs: Lab Results 03/16/22 03/16/22 Range/Units 05:09 05:09 Sodium 138 (137-145) mmol/L Potassium 3.8 (3.4-5.0) mmol/L Chloride 100 (98-107) mmol/L Carbon Dioxide 26 (22-30) mmol/L Anion Gap 12 (8-16) mmol/L BUN 12 (9-20) mg/dL Creatinine 1.00 (0.7-1.3) mg/dL Estim Creat Clear Calc 125 ml/min Estimated GFR > 60 (59 - ) Glucose 125 H (65-110) mg/dL Calcium 9.6 (8.4-10.2) mg/dL SARS-CoV-2 RNA (RT-PCR) Negative
[2022-03-16 06:11] VITALS: BP 132/85; PULSE 89; RESP 15; O2SAT 99
== END 2022-03-16 06:12 | disposition home or self-care (01) ==
PROVIDERS: Emergency Provider Emergency Medicine; PCP Internal Medicine
DX: G44.209 Tension-type headache, unspecified, not intractable (principal); E86.0 Dehydration; Z20.822 Contact with and (suspected) exposure to COVID-19; E66.9 Obesity, unspecified; Z68.39 Body mass index [BMI] 39.0-39.9, adult
CPT/HCPCS: 36415; 80048; 96361; 96374; 99284; A9270; C9803; J2405; J7030; U0003; U0005

== ENCOUNTER 2022-03-28 10:24 | Outpatient (CLI) | payer OTHER, SELFPAY ==
[2022-03-28 11:13] LABS: Appearance Urine Clear (Clear); Bilirubin Urine Negative (Negative); Blood Urine Negative (Negative); Color Urine Yellow (Yellow); Glucose Urine UA Negative (Negative); Ketones Urine Negative (Negative); Leukocyte Esterase Ur Negative LEU/UL (Negative); Nitrate Urine Negative (Negative); Protein Urine Trace mg/dL (Negative); Specific Grav Ur >= 1.030 (1.001-1.035); Urobilinogen Urine 0.2 mg/dL (<2.0)
[2022-03-28 11:36] LABS: Mucus Urine Rare /lpf; Squamous Epithelial Cell Urine Few /hpf (Few); WBC Urine 0-3 /hpf
[2022-03-28 11:41] LABS: Add Urine Microscopic? YES
== END 2022-03-28 10:25 | disposition home or self-care (01) ==
LOC: ANHLAB 10:25
PROVIDERS: PCP Internal Medicine; Visit Provider Surgery
DX: R82.90 Unspecified abnormal findings in urine (principal)
CPT/HCPCS: 81001

== ENCOUNTER 2022-09-15 23:45 | Emergency (ER) | payer OTHER, SELFPAY ==
--- NOTE | ~2022-09-15 | CT_ITS ---
EXAMINATION: CT abdomen pelvis w con INDICATION: Left lower quadrant pain TECHNIQUE: Computed tomographic images of the abdomen and pelvis were obtained after the administrati on of 100 cc of Omnipaque 350 intravenous contrast. The dose-length product (DLP) was 1632.97 mGy-cm. Automated exposure control and iterative reconstruction technique were employed. COMPARISON: 02/20/2022 FINDINGS: Minimal dependent atelectasis is present in the lung bases. The heart size is normal. The l iver, spleen, pancreas, gallbladder, and adrenal glands are normal. The kidneys are unremarkable. No pathologically enlarged abdominal or pelvic lymph nodes are identified. There is wall thickening of t he sigmoid colon with edematous stranding of the perisigmoid fat. The appendix is normal. No free int raperitoneal gas or evidence of bowel obstruction. IMPRESSION: 1. Wall thickening of the sigmoid colon, consistent with colitis. Reviewed, dictated and finalized at location A. [employer]EF[employer] COORDINATOR
[2022-09-15 23:47] VITALS: BP 158/92; PULSE 110; RESP 18; TEMP 36.7; O2SAT 99
[2022-09-16] VITALS: BP 130/87; PULSE 81; RESP 19; O2SAT 95
[2022-09-16 00:34] LABS: Basophils Percent Auto 0.2 % (0.2-1.2); Eosinophils Absolute Auto 0.1 K/mm3 (0-0.3); Eosinophils Percent Auto 0.6 % (0-4.4); Hematocrit 43.8 % (42.0-52.0); Hemoglobin 14.3 g/dL (14.0-18.0); Immature Granulocyte Absolute 0.03 K/mm3 (0.00-0.031); Immature Granulocyte Percent A 0.3 % (0-0.5); Lymphocytes Percent Auto 19.1 % (18.3-44.2); Mean Corpuscular HGB Conc 32.6 g/dl (32-36); Mean Corpuscular Hemoglobin 27.4 pg (26-34); Mean Corpuscular Volume 84.1 fl (80-100); Mean Platelet Volume 9.9 fl (7.4-10.4); Monocytes Absolute Auto 1.2 K/mm3 (0.1-0.6); Monocytes Percent Auto 10.3 % (2.6-8.5); Neutrophils Percent Auto 69.5 % (45.5-73.1); Platelet Count Result 310 k/mm3 (150-375); Red Blood Count 5.21 M/mm3 (4.6-6.20); Red Cell Distribution Width 14.9 % (11.5-14.5); White Blood Count 11.5 K/mm3 (4.5-10.0)
--- NOTE | 2022-09-16 00:47 | ED.GENADULT ---
HPI - General Adult General Chief complaint: Abdominal Pain Stated complaint: LLQ pain Time Seen by Provider: 09/15/22 23:55 History of Present Illness HPI narrative: 42-year-old male presenting to the emergency department for evaluation of left lower quadrant pain that been worsening over the last few days. Patient reports he does have a prior history of diverticulitis and has had a previous bowel resection. Patient had bowel resection on 03/23/[address] Landa. He has not had any episodes of diverticulitis since that time. Patient does complain of watery stool with out any blood but does report worsening left lower quadrant pain. Patient denies any nausea vomiting. Related Data Allergies Allergy/AdvReac Type Severity Reaction Status Date / Time No Known Allergies Allergy Verified 09/15/22 23:49 Review of Systems Review of Systems: CONSTITUTIONAL: Denies fever, chills, or sweats. EYES: Denies visual changes, redness, or discharge. ENT: Denies rhinorrhea, congestion, sore throat, or otalgia. CARDIOVASCULAR: Denies chest pain, palpitations, or edema. RESPIRATORY: Denies cough or dyspnea. GASTROINTESTINAL: See HPI GENITOURINARY: Denies dysuria or hematuria. SKIN: Denies rash or itching. MUSCULOSKELETAL: Denies back pain, joint pain, or myalgia. NEUROLOGIC: Denies headache, numbness, or weakness. [facility] Past Medical History Medical History (Updated 09/16/22 @ 03:36 by Karlo Silverio MD) Diverticulitis large intestine Obesity Surgical History Surgical History (Updated 03/28/22 @ 10:18 by Yvonne Blank) History of colonoscopy S/P laparoscopic-assisted sigmoidectomy 03/23/21 Hand access laparoscopic left colectomy, laparoscopic mobilization of splenic flexure, hand-sewn anastomosis Family History Family History Father Heart disease Mother Hypertension Social History Social History Smoking status: Never smoker Second hand tobacco smoke exposure: No Alcohol intake: current Drinks per week: 2 Substance use: never Substance use type: does not use Living arrangements: with family Occupation/Education: occupation Additional occupation/education comments: [employer] Gender identity (if verbalized by the patient): Male Spiritual care concerns: No Exam Narrative: APPEARANCE: Well appearing, no pain, no distress, well-nourished. HEAD: normocephalic, atraumatic. EYES: PERRLA/EOMI, conjunctivae clear. NOSE: Normal no drainage. NECK: Supple. No adenopathy, no masses. RESPIRATORY: Airway patent, respirations nonlabored. Clear to auscultation bilaterally, no rales, rhonchi, wheezing. CARDIOVASCULAR: Regular rate and rhythm without murmurs rubs or gallops. ABDOMINAL: Left lower quadrant tenderness to palpation, normal bowel sounds MUSCULOSKELETAL: Moves all extremities. Strength/ROM intact, No edema, No calf tenderness. NEURO: Alert. Cranial nerves II through XII intact. Grossly intact SKIN: Warm, dry. Normal Color Course Course Emergency Course: CT scan was ordered to rule out diverticulitis, appendicitis, small bowel obstruction, colitis. Patient was afebrile but does have a leukocytosis of 11.5. Patient's CMP is within normal limits. Patient's CT did show evidence of possible diverticulitis with no abscess or perforation. Patient was started on antibiotics in the emergency department. Patient was also provided medications for pain and nausea control. Patient was educated on reasons to return to the emergency department. Vital Signs Vital signs: Vital Signs Temperature 98.1 F 09/15/22 23:47 Pulse Rate 110 H 09/15/22 23:47 Respiratory Rate 18 09/15/22 23:47 Blood Pressure 158/92 H 09/15/22 23:47 Pulse Oximetry 99 09/15/22 23:47 Oxygen Delivery Room Air 09/15/22 23:47 Temperature 98.1 F 09/15/22 23:47 Pulse Rate 80 09/16/22 03:45 Respirator
[2022-09-16 00:49] LABS: Alanine Aminotransferase 26 U/L (6-50); Albumin Level 4.6 g/dL (3.5-5.1); Alkaline Phosphatase 73 U/L (38-126); Anion Gap 7 mmol/L (8-16); Aspartate Amino Transferase 24 U/L (17-59); Bilirubin,Total 0.5 mg/dL (0.2-1.3); Blood Urea Nitrogen 12 mg/dL (9-20); Calcium 9.6 mg/dL (8.4-10.2); Carbon Dioxide 30 mmol/L (22-30); Chloride 100 mmol/L (98-107); Estimated Glomerular Filt Rate > 60; Glucose 103 mg/dL (65-110); Lipase 74 U/L (23-300); Potassium 3.7 mmol/L (3.4-5.0); Sodium 137 mmol/L (137-145)
[2022-09-16] MEDS: SODIUM CHLORIDE 0.9% IV 1,000 ML 999 ML IV CONT (00:56)
[2022-09-16] MEDS: HYDROmorphone HCL INJ (*CRX) 1 MG/ML SYR IV PUSH (00:56)
[2022-09-16 01:00] VITALS: BP 120/80; PULSE 98; RESP 14; O2SAT 96
[2022-09-16 02:00] VITALS: BP 117/87; PULSE 88; RESP 19; O2SAT 97
[2022-09-16 02:45] VITALS: BP 114/90; PULSE 74; RESP 19; O2SAT 99
[2022-09-16] MEDS: AMOXICILLIN/CLAVULANATE K 875-125 MG TAB 1 TABLET PO (03:44)
[2022-09-16 03:45] VITALS: BP 142/89; PULSE 80; RESP 19; O2SAT 100
== END 2022-09-16 03:45 | disposition home or self-care (01) ==
PROVIDERS: Emergency Provider Emergency Medicine; PCP Internal Medicine
DX: K57.92 Diverticulitis of intestine, part unspecified, without perforation or abscess without bleeding (principal); R10.32 Left lower quadrant pain
CPT/HCPCS: 36415; 74177; 80053; 83690; 85025; 96361; 96374; 99284; A9270; J1170; J7030; Q9967

== ENCOUNTER 2023-06-23 13:43 | Emergency (ER) | payer OTHER, SELFPAY ==
[2023-06-23 13:45] VITALS: BP 156/92; PULSE 99; RESP 20; TEMP 37; O2SAT 99
--- NOTE | 2023-06-23 14:40 | ED.WOUNDLAC ---
HPI - Wound/Laceration General Chief Complaint: Wound/Laceration Stated Complaint: finger lac Time Seen by Provider: 06/23/23 13:51 Source: patient Mode of arrival: ambulatory Limitations: no limitations History of Present Illness HPI narrative: This is a 43 year old male that presents to the ER for laceration to the left first finger sustained just prior to arrival. Reports using a blade and accidentally cut his finger. He is not up to date on tetanus. Denies decreased ROM or numbness. Related Data Allergies Allergy/AdvReac Type Severity Reaction Status Date / Time No Known Allergies Allergy Verified 06/23/23 13:47 Review of Systems Review of Systems: CONSTITUTIONAL: Denies fever SKIN: Reports laceration MUSCULOSKELETAL: Denies joint pain, or myalgia. NEUROLOGIC: Denies numbness All systems reviewed & are unremarkable except as noted in HPI and below PMFSH Past Medical History Medical History Diverticulitis large intestine Obesity Surgical History Surgical History History of colonoscopy S/P laparoscopic-assisted sigmoidectomy 03/23/21 Hand access laparoscopic left colectomy, laparoscopic mobilization of splenic flexure, hand-sewn anastomosis Family History Family History Father Heart disease Mother Hypertension Social History Social History Smoking status: Never smoker Second hand tobacco smoke exposure: No Alcohol intake: current Drinks per week: 2 Substance use: never Substance use type: does not use Lack of Transportation: No Lack of Food: Never True Current Housing: I Have Housing Concerned About Future Housing: No Difficulty Paying Gas/Electric Bills: No Difficulty Paying for Meds: No Currently Unemployed: No Education: High School Diploma/GED Difficulty w/ Childcare or Family Care: No Living arrangements: with family Occupation/Education: occupation Additional occupation/education comments: [employer] Gender identity (if verbalized by the patient): Male Spiritual care concerns: No Exam Narrative: GENERAL: Well-appearing, well-nourished, and in no acute distress. HEAD: Normocephalic, atraumatic. EYES: EOMI. EXTREMITIES: Normal range of motion. No edema. 2.5cm linear laceration into subcutaneous tissue to the left first finger distal phalanx SKIN: Warm, dry, no rash. NEURO: No focal deficits. Alert and oriented x3. PSYCH: Normal mood and affect Course Course Emergency Course: Patient educated on further wound care Vital Signs Vital signs: Vital Signs Temperature 98.6 F 06/23/23 13:45 Pulse Rate 99 06/23/23 13:45 Respiratory Rate 20 06/23/23 13:45 Blood Pressure 156/92 H 06/23/23 13:45 Pulse Oximetry 99 06/23/23 13:45 Oxygen Delivery Room Air 06/23/23 13:45 Temperature 98.6 F 06/23/23 13:45 Pulse Rate 99 06/23/23 13:45 Respiratory Rate 20 06/23/23 13:45 Blood Pressure 156/92 H 06/23/23 13:45 Pulse Oximetry 99 06/23/23 13:45 Oxygen Delivery Room Air 06/23/23 13:45 Procedures Laceration Laceration 1: Date: 06/23/23 Time: 14:50 Side (If applicable): left Size (cm): 2.5 Description: linear Depth: simple, single layer Local Anesthetic: lidocaine 1% Amount of anesthesia used (mL): 4 Pre-repair: wound explored and irrigated ====== Skin Level ====== Skin layer closed with: nylon Size (cm): 4-0 Number of sutures: 3 Technique: simple, interrupted ====== Subcutaneous Layer ====== ====== Muscle Layer ====== ====== Tendon Layer ====== MDM - Wound/Laceration MDM Narrative Medical decision making narrative: Patient presents to the ER for laceration to the left first finger sustai
[2023-06-23] MEDS: TETANUS,DIPHTHERIA,AC PERTUSSIS ADULT (0.5 ML) BOOSTRIX IM (14:46)
== END 2023-06-23 14:59 | disposition home or self-care (01) ==
PROVIDERS: Emergency Provider Physician Assistant; PCP Family Medicine
DX: S61.012A Laceration without foreign body of left thumb without damage to nail, initial encounter (principal); Z23 Encounter for immunization; E66.9 Obesity, unspecified; Z68.37 Body mass index [BMI] 37.0-37.9, adult; Z90.49 Acquired absence of other specified parts of digestive tract; W27.8XXA Contact with other nonpowered hand tool, initial encounter
CPT/HCPCS: 12001; 90471; 90715; 99282